=== PATIENT | male | born 1935 | race Caucasian/White ===

== ENCOUNTER 2016-07-19 12:05 | Emergency (ER) | payer MEDICARE, OTHER ==
[~2016-07-19] VITALS: Ht 165.1 cm; Wt 88.0 kg
[~2016-07-19 12:05] MED LIST: AMLO-145 PO; AMLO-147 PO; ATEN50TA PO; PARO-37 PO; [UNRECOGNIZED DRUG - CODE]; [UNRECOGNIZED DRUG - OTHER]
[2016-07-19 12:09] VITALS: Ht 165.1 cm; Wt 88.0 kg
[2016-07-19] MEDS ORDERED: SOD CHLORIDE 0.9% 1,000 ML IV STA (12:26)
[2016-07-19] MEDS ORDERED: LABETALOL HCL 20MG INJ IV ONE (12:30)
[2016-07-19] MEDS ORDERED: ONDANSETRON 4 MG INJ IV STA (12:34)
[2016-07-19 12:56] VITALS: BP 151/87; PULSE 91; RESP 16
[2016-07-19] MEDS ORDERED: morphine 2 MG INJ IV ONE (13:00)
[2016-07-19 13:02] LABS: ADD SCAN DIFF NO
[2016-07-19 13:04] LABS: BASOPHILS % 0.6 % (0.0-2.0); EOSINOPHILS # 0.2 10^3/ul (0.0-0.5); EOSINOPHILS % 2.4 % (0.0-7.0); HEMATOCRIT 42.1 % (42.0-52.0); HEMOGLOBIN 14.2 g/dl (14.0-18.0); LYMPHOCYTES # 2.3 10^3/ul (0.8-2.9); LYMPHOCYTES % 37.5 % (15.0-51.0); MEAN CORPUSCULAR HEMOGLOBIN 30.9 pg (29.0-33.0); MEAN CORPUSCULAR HGB CONC 33.7 g/dl (32.0-37.0); MEAN CORPUSCULAR VOLUME 91.5 fl (82.0-101.0); MEAN PLATELET VOLUME 10.8 fl (7.4-10.4); MONOCYTE # 0.5 10^3/ul (0.3-0.9); MONOCYTES % 8.2 % (0.0-11.0); NEUTROPHIL # 3.2 10^3/ul (1.6-7.5); NEUTROPHILS % 51.1 % (39.0-77.0); PLATELET COUNT 199 10^3/UL (140-415); RED CELL DISTRIBUTION WIDTH 13.4 % (11.5-14.5); WHITE BLOOD COUNT 6.2 10^3/ul (4.8-10.8)
[2016-07-19] MEDS ORDERED: NAPR-688 PO ×2 (13:11→15:30)
[2016-07-19] MEDS ORDERED: NASO17 NASAL (13:11)
[2016-07-19] MEDS ORDERED: TAMS-14 PO (13:12)
[2016-07-19] MEDS ORDERED: ESOM20CA PO (13:12)
[2016-07-19] MEDS ORDERED: SPIR100T31 PO (13:12)
[2016-07-19] MEDS ORDERED: ICOS1CAP PO (13:14)
[2016-07-19] MEDS ORDERED: ATOR40TA68 PO (13:17)
[2016-07-19] MEDS ORDERED: PARO40TA79 PO (13:17)
[2016-07-19] MEDS ORDERED: RANI300T PO (13:17)
[2016-07-19] MEDS ORDERED: LORA0.5T PO (13:18)
[2016-07-19] MEDS ORDERED: FURO-109 PO (13:18)
[2016-07-19] MEDS ORDERED: LEVO25TA50 PO (13:18)
[2016-07-19] MEDS ORDERED: LISI20TA11 PO (13:19)
[2016-07-19] MEDS ORDERED: BIMA2.5D BOTH EYES (13:19)
[2016-07-19] MEDS ORDERED: NIT4 SL (13:19)
[2016-07-19] MEDS ORDERED: LINA145C PO (13:20)
--- NOTE | 2016-07-19 13:20 | RADRPT ---
PROCEDURE: XR Chest. CLINICAL INDICATION: Chest pain TECHNIQUE: Single frontal chest x-ray. COMPARISON: 12/11/2014 FINDINGS: The heart size is enlarged. Subtle mild increased vascular congestion is seen within the lungs, chr onic in nature and stable over time. No pneumonia is identified. There is no acute pulmonary infil trate. There is mild elevation of the left hemidiaphragm. The heart size is enlarged. Aortic ather osclerotic vascular calcifications are identified. Chronic degenerative changes of the surrounding osseous structures is noted. IMPRESSION: 1. Cardiomegaly with mild central vascular congestion. 2. Elevated left hemidiaphragm. 3. Vascular calcifications consistent with atherosclerosis. 4. Degenerative spondylosis of the spine. 5. Stable appearances compared to the older prior study. RPTAT: HMJB .Evin Saavedra MD, Date Time Electronically viewed and signed by .Evin Saavedra MD, on 07/19/2016 13:20 .B/
[2016-07-19] MEDS ORDERED: CLON-379 PO (13:21)
[2016-07-19] MEDS ORDERED: MOME45OI9 TOP (13:22)
[2016-07-19] MEDS ORDERED: CALC60OI3 TOP (13:22)
[2016-07-19 13:23] LABS: INR 0.96; PARTIAL THROMBOPLASTIN TIME 26.4 Sec (25.0-35.0); PROTIME 12.8 Sec (12.2-14.2)
[2016-07-19 13:27] LABS: CHLORIDE 108 mmol/L (97-110); POTASSIUM 4.7 mmol/L (3.5-5.1); SODIUM 139 mmol/L (135-144)
[2016-07-19 13:28] LABS: ALBUMIN 4.1 g/dl (3.3-4.9)
[2016-07-19] MEDS ORDERED: BUPR150F BC (13:28)
[2016-07-19 13:30] LABS: CREATININE 1.27 mg/dl (0.61-1.24)
[2016-07-19 13:31] LABS: ANION GAP 10 (8-16); BLOOD UREA NITROGEN 21 mg/dl (7-20); CALCIUM 8.9 mg/dl (8.4-10.2); CARBON DIOXIDE 26 mmol/L (21-31); GLUCOSE 91 mg/dl (70-220)
[2016-07-19 13:31] LABS: BILIRUBIN,INDIRECT 0.4 mg/dl (0-1.1); BILIRUBIN,TOTAL 0.4 mg/dl (0.2-1.3); TOTAL PROTEIN 7.6 g/dl (6.1-8.1)
[2016-07-19 13:44] LABS: TROPONIN-I < 0.012 ng/ml (0.00-0.12)
[2016-07-19 13:57] LABS: ADD UMIC NO; URINE BILIRUBIN (Dip) NEGATIVE (NEGATIVE); URINE BLOOD (Dip) NEGATIVE (NEGATIVE); URINE COLOR YELLOW (YELLOW); URINE GLUCOSE (Dip) NEGATIVE (NEGATIVE); URINE KETONES (Dip) NEGATIVE (NEGATIVE); URINE LEUKOCYTE ESTERASE (Dip) NEGATIVE (NEGATIVE); URINE NITRITE (Dip) NEGATIVE (NEGATIVE); URINE TOTAL PROTEIN (Dip) NEGATIVE (NEGATIVE); URINE UROBILINOGEN (Dip) 0.2 E.U./dL (0.1-1.0)
--- NOTE | 2016-07-19 14:17 | RADRPT ---
PROCEDURE: CT Abdomen and Pelvis without contrast. CLINICAL INDICATION: Abdominal pain. TECHNIQUE: Routine abdominopelvic CT was performed without intravenous contrast and reformatted in the axial, coronal, sagittal planes. Radiation dose: CTDIvol (mGy) = 17.9; total DLP mGy-cm = 1147. One or more of the following radiation dose techniques were used: -Automated exposure control. -Adjust of the mA and/or kV according to patient size. -Use of iterative reconstruction technique. COMPARISON: None. FINDINGS: A single calculus is noted in the gallbladder without gallbladder wall thickening or inflammation. There are diffuse steatotic changes in the liver. Pancreas, adrenal glands, and spleen are grossly unremarkable by unenhanced CT. Nonspecific bilateral perinephric inflammation without hydronephrosis or obstructive uropathy. Mild sigmoid and descending colonic diverticulosis without diverticulitis. Small bowel loops are no rmal in caliber and mural thickness. The appendix is not definitely identified but no secondary sig ns of appendicitis. Moderate atherosclerotic aortic calcifications without aneurysm. Prostate gland is enlarged (5.6 cm in AP dimension). There is associated trabeculation of the urina ry bladder. Moderate to severe atherosclerotic aortic calcifications without aneurysm. Diastases of the rectus abdominis musculature with evidence of a prior midline incision IMPRESSION: Examination is limited by the absence of intravenous contrast, which may limit diagnostic sensitivit y. Within the limitations of the examination, no acute intra-abdominal process. Cholelithiasis and colonic diverticulosis, uncomplicated. Additional incidental findings are delineated above. RPTAT: EE .Александр Fontaine MD, Date Time Electronically viewed and signed by .Александр Fontaine MD, on 07/19/2016 14:21 .C/
[2016-07-19] MEDS ORDERED: morphine 4 MG/ML VIAL IV STA (14:24)
--- NOTE | 2016-07-19 15:17 | RADRPT ---
PROCEDURE: US Abdomen (Right upper quadrant) CLINICAL INDICATION: Abdominal pain. TECHNIQUE: Multiple real-time longitudinal and transverse images were acquired of the patient's ri ght upper quadrant utilizing a curved array transducer. COMPARISON: Same day CT. FINDINGS: Liver demonstrates nonspecific coarsening of the liver echotexture. No focal liver mass. Portal vein demonstrates hepatopetal flow. Gallbladder demonstrates a single gallstone. There is no gallbladder wall thickening or pericholecy stic fluid. No intra- or extrahepatic biliary dilation. Sonographic Lackey's sign is negative, as per technologist. Pancreas is poorly visualized. Right kidney demonstrates cortical thinning without hydronephrosis or nephrolithiasis. There are sm all renal cysts. No ascites. Proximal aorta and IVC are unremarkable. MEASUREMENTS: Liver: 17.5 cm Common Duct: 0.4 cm Right Kidney: 9.3 cm IMPRESSION: 1. Cholelithiasis without sonographic evidence of cholecystitis or biliary dilatation. 2. Hepatic steatosis. RPTAT: EE .Александр Fontaine MD, MD Date Time Electronically viewed and signed by .Александр Fontaine MD, MD on 07/19/2016 15:21 .C/
[2016-07-19] MEDS ORDERED: ONDA4TAB11 PO (15:30)
[2016-07-19] MEDS ORDERED: HYDR-906 PO (15:30)
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
== END 2016-07-19 16:26 | disposition home or self-care (01) ==
LOC: E/R 12:05
DX: K80.50 Calculus of bile duct without cholangitis or cholecystitis without obstruction (principal); R40.2142 Coma scale, eyes open, spontaneous, at arrival to emergency department; R40.2252 Coma scale, best verbal response, oriented, at arrival to emergency department; R40.2362 Coma scale, best motor response, obeys commands, at arrival to emergency department; I10 Essential (primary) hypertension; J45.909 Unspecified asthma, uncomplicated; R07.9 Chest pain, unspecified
CPT/HCPCS: 36415; 71010; 74176; 76705; 80048; 80076; 81003; 83690; 84484; 85025; 85610; 85730; 96374; 96375; 96376; 99285; J2270; J2405; J7030; 93005

== ENCOUNTER 2016-08-14 07:31 | Day surgery (SDC) | payer MEDICARE, OTHER ==
[2016-08-13 11:58] VITALS: BMI 32.0
[~2016-08-14] VITALS: Ht 167.6 cm; Wt 86.8 kg
[~2016-08-14 07:31] MED LIST changes: -AMLO-145 PO; -AMLO-147 PO; -ATEN50TA PO; +ATOR40TA68 PO; +BIMA2.5D BOTH EYES; +BUPR150F BC; +CALC60OI3 TOP; +CEFAZOLIN 2 GM/50 ML (PMX) 50 ML IVPB SCH; +CLON-379 PO; +ESOM20CA PO; +FURO-109 PO; +HYDR-906 PO; +ICOS1CAP PO; +LEVO25TA50 PO; +LINA145C PO; +LISI20TA11 PO; +LORA0.5T PO; +MOME45OI9 TOP; +NAPR-688 PO; +NASO17 NASAL; +NIT4 SL; +ONDA4TAB11 PO; -PARO-37 PO; +PARO40TA79 PO; +RANI300T PO; +SOD CHLORIDE 0.9% 1,000 ML IV SCH; +SPIR100T31 PO; +TAMS-14 PO; -[UNRECOGNIZED DRUG - CODE]; -[UNRECOGNIZED DRUG - OTHER]
[2016-08-14] MEDS ORDERED: BUPIVACAINE 0.25% (MPF) 30 ML INJ ONE (08:41)
[2016-08-14 08:55] VITALS: BP 144/66; PULSE 73; RESP 16; Ht 167.6 cm; Wt 86.8 kg
[2016-08-14] MEDS ORDERED: ICOS1CAP PO (09:09)
[2016-08-14] MEDS ORDERED: DICL112S2 TP (09:09)
[2016-08-14] MEDS ORDERED: ALIR75PE SQ (09:09)
[2016-08-14] MEDS ORDERED: [UNRECOGNIZED DRUG - REMARK] (09:11)
[2016-08-14] MEDS ORDERED: PENNSAID (09:12)
[2016-08-14] MEDS ORDERED: FENTAnyl 50 MCG/ML VIAL ONE (09:17)
[2016-08-14] MEDS ORDERED: ROCURONIUM 50 MG INJ ONE (09:17)
[2016-08-14] MEDS ORDERED: ROPIVACAINE 0.5 % 30 ML VIAL ONE (09:17)
[2016-08-14] MEDS ORDERED: PROPOFOL 0 ML ONE (09:17)
[2016-08-14] MEDS ORDERED: METOCLOPRAMIDE 10 MG INJ ONE (09:17)
[2016-08-14 09:29] LABS: ALBUMIN 4.6 g/dl (3.3-4.9); ALBUMIN/GLOBULIN RATIO 1.48; BILIRUBIN,INDIRECT 0.2 mg/dl (0-1.1); BILIRUBIN,TOTAL 0.2 mg/dl (0.2-1.3); TOTAL PROTEIN 7.7 g/dl (6.1-8.1)
[2016-08-14 09:32] LABS: CALCIUM 8.6 mg/dl (8.4-10.2); CREATININE 1.38 mg/dl (0.61-1.24); POTASSIUM 6.9 mmol/L (3.5-5.1)
[2016-08-14] MEDS ORDERED: ALBUTEROL 0.5% (NEB) 2.5 MG/0.5 ML AMP INH STA (11:27)
[2016-08-14] MEDS ORDERED: NA BICARBONATE 8.4% 50 ML SYG IV STA (11:27)
[2016-08-14] MEDS ORDERED: INSULIN REGULAR, HUMAN 100 UNIT/1 ML 3ML VIAL IV STA (11:27)
[2016-08-14] MEDS ORDERED: DEXTROSE 50% 50 ML SYRINGE IV PRN (11:30)
[2016-08-14] MEDS ORDERED: NAPR550T3 PO (12:03)
== END 2016-08-14 11:17 | disposition home or self-care (01) ==
LOC: SDS 07:31
PROVIDERS: ATTEND Surgery
DX: K80.20 Calculus of gallbladder without cholecystitis without obstruction (principal); Z53.9 Procedure and treatment not carried out, unspecified reason; I10 Essential (primary) hypertension; F32.9 Major depressive disorder, single episode, unspecified; N40.0 Benign prostatic hyperplasia without lower urinary tract symptoms
CPT/HCPCS: 80053; 84132; J2765; J2795; J3010

== ENCOUNTER 2016-08-14 11:16 | Inpatient (IN) | payer MEDICARE, OTHER ==
[~2016-08-14] VITALS: Ht 167.6 cm; Wt 95.0 kg
[~2016-08-14 11:16] MED LIST changes: +ALIR75PE SQ; -CEFAZOLIN 2 GM/50 ML (PMX) 50 ML IVPB SCH; +DICL112S2 TP; +PENNSAID; -SOD CHLORIDE 0.9% 1,000 ML IV SCH; +[UNRECOGNIZED DRUG - REMARK]
[2016-08-14] MEDS ORDERED: NAPR550T3 PO (12:03)
[2016-08-14] MEDS ORDERED: ONDANSETRON 4 MG INJ IV STA (12:12)
[2016-08-14] MEDS ORDERED: morphine 4 MG/ML VIAL IV STA (12:12)
[2016-08-14] MEDS ORDERED: ACETAMINOPHEN 325 MG TAB PO PRN (12:30)
[2016-08-14] MEDS ORDERED: ONDANSETRON 4 MG INJ IV PRN ×2 (12:30→13:00)
[2016-08-14 12:43] LABS: ADD SCAN DIFF NO
[2016-08-14] MEDS ORDERED: INSULIN REGULAR, HUMAN 100 UNIT/1 ML 3ML VIAL IV STA (12:47)
[2016-08-14] MEDS ORDERED: ALBUTEROL 0.5% (NEB) 2.5 MG/0.5 ML AMP INH STA (12:47)
[2016-08-14] MEDS ORDERED: NA BICARBONATE 8.4% 50 ML SYG IV STA (12:47)
[2016-08-14 12:52] LABS: BASOPHIL # 0.1 10^3/ul (0.0-0.1); BASOPHILS % 0.9 % (0.0-2.0); EOSINOPHILS # 0.2 10^3/ul (0.0-0.5); EOSINOPHILS % 2.6 % (0.0-7.0); HEMATOCRIT 42.7 % (42.0-52.0); HEMOGLOBIN 14.2 g/dl (14.0-18.0); LYMPHOCYTES % 27.2 % (15.0-51.0); MEAN CORPUSCULAR HEMOGLOBIN 31.2 pg (29.0-33.0); MEAN CORPUSCULAR HGB CONC 33.3 g/dl (32.0-37.0); MEAN CORPUSCULAR VOLUME 93.8 fl (82.0-101.0); MEAN PLATELET VOLUME 10.9 fl (7.4-10.4); MONOCYTE # 0.5 10^3/ul (0.3-0.9); MONOCYTES % 7.3 % (0.0-11.0); NEUTROPHIL # 4.6 10^3/ul (1.6-7.5); NEUTROPHILS % 61.7 % (39.0-77.0); PLATELET COUNT 205 10^3/UL (140-415); RED BLOOD COUNT 4.55 10^6/ul (4.70-6.10); RED CELL DISTRIBUTION WIDTH 13.2 % (11.5-14.5); WHITE BLOOD COUNT 7.4 10^3/ul (4.8-10.8)
[2016-08-14] MEDS ORDERED: morphine 4 MG/ML VIAL IV PRN (13:00)
[2016-08-14] MEDS ORDERED: NITROGLYCERIN (SL) 0.4 MG TAB SL PRN (13:00)
[2016-08-14] MEDS ORDERED: NA POLYST SULFON 15 GM/60 ML BTL PO ONE (13:00)
[2016-08-14] MEDS ORDERED: NACL 0.9% 3 ML SYG IV SCH (13:00)
[2016-08-14] MEDS ORDERED: hydrALAzine 20 MG INJ IV PRN (13:00)
[2016-08-14] MEDS ORDERED: DEXTROSE 50% 50 ML SYRINGE IV PRN (13:00)
[2016-08-14 13:10] LABS: ANION GAP 13 (8-16); BLOOD UREA NITROGEN 21 mg/dl (7-20); CALCIUM 8.5 mg/dl (8.4-10.2); CARBON DIOXIDE 21 mmol/L (21-31); CHLORIDE 110 mmol/L (97-110); CREATININE 1.29 mg/dl (0.61-1.24); GLUCOSE 70 mg/dl (70-220); SODIUM 137 mmol/L (135-144)
--- NOTE | 2016-08-14 13:12 | RADRPT ---
PROCEDURE: XR Chest 1 View. CLINICAL INDICATION: Chest pain TECHNIQUE: AP view of the chest was obtained. COMPARISON: July 19, 2016 FINDINGS: The cardiomediastinal silhouette is within normal limits. Blunting of the bilateral costophrenic ang les is identified. Atelectasis is noted in the bilateral lower lobes. No consolidations are identif ied. No pneumothorax is seen. The osseous structures are osteopenic, but appear grossly intact. D egenerative changes are seen in the shoulders. IMPRESSION: Lung of the bilateral costophrenic angles that may reflect small pleural effusions. Atelectasis at the lung bases. RPTAT: AA .Denzel Hurley MD, Date Time Electronically viewed and signed by .Denzel Hurley MD, on 08/14/2016 13:12 .P/
[2016-08-14 13:14] LABS: POTASSIUM 7.1 mmol/L (3.5-5.1)
[2016-08-14 13:38] LABS: TROPONIN-I < 0.012 ng/ml (0.00-0.12)
--- NOTE | 2016-08-14 13:52 | RADRPT ---
PROCEDURE: Renal Ultrasound CLINICAL INDICATION: Elevated creatinine. TECHNIQUE: Evaluation of the kidneys and bladder was performed as well with helton scale and color and Doppler evaluation using a curved array transducer. The images were reviewed on a high-resoluti on PACS workstation. COMPARISON: Right upper quadrant ultrasound 07/19/2016. CT abdomen pelvis 07/19/2016 FINDINGS: The kidneys are well visualized. No renal masses or calcifications are seen. There is no hydronephr osis. The right kidney measures 9.8 cm in length. The left kidney measures 9.1 cm in length. N o perinephric fluid collection is seen. The bladder is within normal limit. IMPRESSION: 1. Unremarkable renal ultrasound. RPTAT: KK .Tiburcio Nolasco MD, MD Date Time Electronically viewed and signed by .Tiburcio Nolasco MD, MD on 08/14/2016 13:52 .B/
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
[2016-08-14] MEDS: ALBUTEROL 18 GM INHALER INH SCH ×3 (14:09→21:00)
[2016-08-14] MEDS: SOD CHLORIDE 0.9% 1,000 ML IV SCH ×2 (14:10→22:43)
[2016-08-14 17:29] VITALS: TEMP 97.8
[2016-08-14 18:33] VITALS: BP 155/70; PULSE 65; RESP 18
[2016-08-14 18:53] VITALS: PULSE 71
[2016-08-14 20:00] VITALS: Ht 167.6 cm; Wt 95.0 kg
[2016-08-14 20:32] VITALS: PULSE 80
[2016-08-14 20:34] VITALS: BP 165/72; RESP 16
[2016-08-14 20:53] LABS: CALCIUM 8.6 mg/dl (8.4-10.2); CREATININE 1.27 mg/dl (0.61-1.24); POTASSIUM 5.3 mmol/L (3.5-5.1)
[2016-08-14] MEDS: HEPARIN 5,000 UNIT/0.5 ML VIAL SC SCH (21:34)
--- NOTE | 2016-08-14 22:09 | CONS ---
DATE OF ADMISSION: 08/14/2016 DATE OF CONSULTATION: 08/14/2016 NEPHROLOGY CONSULTATION REASON FOR CONSULTATION: Hyperkalemia, acute kidney injury. PHYSICIAN REQUESTING CONSULT: Dr. Cole. HISTORY OF PRESENT ILLNESS: This is an 81-year-old male with a past medical history of hypertension , history of abdominal pain, anxiety disorder, hypothyroidism, constipation, who presents to [facility] Emergency Room from same day surgery due to hyperkalemia. The patient has a h istory of gallstones and fatty liver, and was undergoing a planned elective cholecystectomy and live r biopsy. The patient's surgery was canceled after laboratory data was drawn, which showed a potass ium level of 7.5 and creatinine 1.27 mg/dL. The patient was subsequently transferred to the Emergen cy Room. In the Emergency Room, the patient's hyperkalemia was verified with a repeat potassium of 7.1 mEq/liter. The patient was medically managed with Kayexalate, IV fluids, insulin, dextrose, alb uterol, and calcium gluconate. The patient had no significant EKG changes and has been otherwise st able. In terms of patient's renal history, per patient's family, the patient has no prior history of kidne y disease. The patient's previous renal panel shows creatinines ranging from 0.85-1.7 mg/dL. The p atient does admit to taking Aldactone, lisinopril, NSAIDs. He denies any recent fevers, chills, den ies any rashes, any frothy urine, hemoptysis, hemetemesis, hematochezia. PAST MEDICAL HISTORY: As stated above, history of hypertension, history of possible CKD, history of hypothyroidism, history of abdominal pain, history of chronic pain syndrome, history of constipatio n. PAST SURGICAL HISTORY: Previous stomach surgery in the past. ALLERGIES: NO KNOWN DRUG ALLERGIES. FAMILY HISTORY: No family history of kidney disease or heart disease. SOCIAL HISTORY: Does not drink, smoke, or do drugs. MEDICATIONS: The patient's medications have been reviewed. REVIEW OF SYSTEMS: A 14-point review of systems was conducted. Pertinent positives stated in HPI, otherwise negative. PHYSICAL EXAMINATION: VITAL SIGNS: Blood pressure is 155/70, respirations 18, pulse 65, temperature 97.7. I's and O's not adequately recorded. HEENT: Head is normocephalic. Pupils are reactive to light. NECK: Supple. HEART: Regular rate. LUNGS: Show diminished breath sounds at the base. ABDOMEN: Soft, mild tenderness to palpation. EXTREMITIES: Negative for clubbing, cyanosis, no edema. DERMATOLOGIC: No rashes. MUSCULOSKELETAL: No joint effusions. NEUROLOGIC: No focal deficits. LABORATORY DATA: Shows white count of 7.4, hemoglobin 14.2, hematocrit 42.7, platelet count is 205. Sodium 137, potassium 7.1, chloride 110, BUN 21, creatinine 1.29. IMAGING STUDIES: Patient's renal ultrasound shows unremarkable kidney ultrasound, no hydronephrosis , and chest x-ray shows small pleural effusions. ASSESSMENT AND PLAN: This is an 80-year-old male who presents with: 1. Hyperkalemia: Etiology is likely multifactorial secondary to NSAID use, SABA inhibitor, Aldacton e effect, possible by acute kidney injury. The patient is status post calcium gluconate, Kayexalate , IV fluids, Albuterol, IV insulin. The patient's urinary output has been adequate. Plan at this p oint is to repeat a stat BMP to see if the patient's potassium levels have normalized. Would contin ue holding SABA inhibitor, ARB, NSAID, Aldactone. If potassium levels do not normalize with medical management, the patient will undergo hemodialysis. We will monitor closely on telemetry. 2. Nonoliguric acute kidney injury on top of possible chronic kidney disease: The patient's previo us baseline creatinines have ranged from 0.85-1.25 mg/dL. Etiology of acute kidney injury is second reinaldo to medications including SABA inhibitor, diuretic therapy, NSAID. Plan is for full evaluation. We will check a UA with microanalysis. We will check urine electrolytes. The patient's renal ultra sound shows no evidence of hydronephrosis. We will otherwise continue gentle IV hydration. We will follow up renal panel closely. Otherwise, continue supportive care, renally dose meds, avoid nephr otoxins. As stated above, if the patient's hyperkalemia does not respond to medical management, wou ld consider renal replacement therapy. 3. Hypertension: Blood pressure is currently controlled, continue to monitor. If blood pressure m edications need to be resumed, would recommend calcium-channel blockers and/or beta-blockers. 4. Chronic abdominal pain: The patient is pending cholecystectomy and liver biopsy. We will monit or. 5. Fatty liver: We will continue to monitor. The patient is pending possible liver biopsy once cl inically stable. 6. Obesity: Continue dietary modification. 7. . 2. Gastrointestinal and deep venous thrombosis prophylaxis. Thank you, Dr. Cole, for this interesting consultation. It will be a pleasure to follow patient wit h lizzie throughout the hospital course. Dictated By: JACQUI MORSE/MAYELIN Conf#: [id number] DID#: [id number]
[2016-08-14 23:21] LABS: ADD UMIC NO; UR ASCORBIC ACID NEGATIVE (NEGATIVE); UR BILIRUBIN (Dip) NEGATIVE (NEGATIVE); UR BLOOD (Dip) NEGATIVE (NEGATIVE); UR CLARITY CLEAR (CLEAR); UR COLOR STRAW (YELLOW); UR GLUCOSE (Dip) NEGATIVE (NEGATIVE); UR KETONES (Dip) NEGATIVE (NEGATIVE); UR LEUKOCYTE ESTERASE (Dip) NEGATIVE Leu/ul (NEGATIVE); UR NITRITE (Dip) NEGATIVE (NEGATIVE); UR TOTAL PROTEIN (Dip) NEGATIVE (NEGATIVE); UR UROBILINOGEN (Dip) NEGATIVE (NEGATIVE)
--- NOTE | 2016-08-14 23:53 | HP ---
Date/Time of Note Date/Time of Note DATE: 08/14/16 TIME: 23:53 Assessment/Plan VTE Prophylaxis VTE Prophylaxis Intervention: SCD's Lines/Catheters IV Catheter Type (from Nrs): Peripheral IV Urinary Cath still in place: No Assessment/Plan Assessment/Plan IMPRESSION 1. Hyperkalemia 2. Presumed BINTA 3. HTN 4. hx of Hypothyroidism 5. Hx of Anxiety 6. Hx of GERD 7. Cholelithiasis PLAN pt is s/p treatment for hyperK. Will f/u lab closely. Dr. Oliver on board, appreciate his input cont his home meds since surgery is cancelled Mgmt of cholelithiasis per surgery HPI/ROS Admit Date/Time Admit Date/Time Aug 14, 2016 at 12:26 Hx of Present Illness Patient is an 81 yo male with hx of HTN, hypothyroidism, anxiety, GERD who was sent from same day surgery to ER for hyperkalemia. Elective lap choley was cancelled. He is accopmpanied with daughter who also provided hx. Pt reported intermittent palpitations over past few days. Denied chest pain or syncope. Also denied hx of renal disease. In ER, K was 7.1. he was given insulin and albuterol. kayexalate is now ordered. . PMH/Family/Social Past Medical History HTN, hypothyroidism, anxiety, GERD Social History Smoking Status: Never smoker Exam/Review of Systems Vital Signs Vitals Vital Signs Date Time Temp Pulse Resp B/P Pulse Ox O2 Delivery O2 Flow Rate FiO2 08/14/16 20:34 98.1 69 16 165/72 97 08/14/16 18:33 Room Air 08/14/16 13:22 21 Exam Constitutional: alert, oriented, other (obese) Head: atraumatic, normocephalic Eyes: EOMI, PERRL Respiratory: clear to auscultation, normal air movement Cardiovascular: nl pulses, regular rate and rhythm Gastrointestinal: soft, tender Extremities: normal pulses Labs Result Diagram: 08/14/16 1205 08/14/16 1957 Medications Medications Current Medications Dextrose ONCE PRN IV POC BLOOD GLUCOSE <250 MG/DL Last administered on t 13:17; Admin Dose 50 ML; Start 08/14/16 at 13:00 Sodium Chloride (NS) 1,000 ml @ 100 mls/hr Q10H IV Last administered on 22:43; Admin Dose 100 MLS/HR; Start 08/14/16 at 12:43 Ondansetron HCl (Zofran Inj) 4 mg Q6H PRN IV NAUSEA AND/OR VOMITING; Start at 13:00 Nitroglycerin (Nitroglycerin (Sl Tab) 0.4 Mg) 1 tab Q5M PRN SL CHEST PAIN; Start 08/14/16 at 13:00 Morphine Sulfate (morphine) 4 mg Q4H PRN IV pain; Start 08/14/16 at 13:00 Heparin Sodium (Porcine) (Heparin (5000 Units/0.5 ml)) 5,000 unit Q12 SC Last administered on 08/14/16 21:34; Admin Dose 5,000 UNIT; Start 08/14/16 at 21:00 Hydralazine HCl (Apresoline) 10 mg Q4H PRN IV sbp > 160 Last administered on 21:33; Admin Dose 10 MG; Start 08/14/16 at 13:00 JAROD NATH MD Aug 14, 2016 23:53
[2016-08-14 23:59] VITALS: BP 144/67; RESP 18
[2016-08-15] VITALS (12 sets, daily range): BP systolic 101–148; BP diastolic 59–71; PULSE 65–82; RESP 16–19
[2016-08-15 07:56] LABS: ADD SCAN DIFF NO
[2016-08-15 08:05] LABS: BASOPHIL # 0.1 10^3/ul (0.0-0.1); BASOPHILS % 0.9 % (0.0-2.0); EOSINOPHILS # 0.2 10^3/ul (0.0-0.5); EOSINOPHILS % 2.8 % (0.0-7.0); HEMOGLOBIN 13.2 g/dl (14.0-18.0); LYMPHOCYTES # 1.9 10^3/ul (0.8-2.9); LYMPHOCYTES % 36.3 % (15.0-51.0); MEAN CORPUSCULAR HEMOGLOBIN 30.8 pg (29.0-33.0); MEAN CORPUSCULAR HGB CONC 32.2 g/dl (32.0-37.0); MEAN CORPUSCULAR VOLUME 95.8 fl (82.0-101.0); MEAN PLATELET VOLUME 10.9 fl (7.4-10.4); MONOCYTE # 0.5 10^3/ul (0.3-0.9); MONOCYTES % 8.6 % (0.0-11.0); NEUTROPHIL # 2.7 10^3/ul (1.6-7.5); NEUTROPHILS % 51.2 % (39.0-77.0); PLATELET COUNT 157 10^3/UL (140-415); RED BLOOD COUNT 4.28 10^6/ul (4.70-6.10); RED CELL DISTRIBUTION WIDTH 13.5 % (11.5-14.5); WHITE BLOOD COUNT 5.4 10^3/ul (4.8-10.8)
[2016-08-15 08:20] LABS: CALCIUM 7.6 mg/dl (8.4-10.2); CREATININE 1.16 mg/dl (0.61-1.24); POTASSIUM 5.9 mmol/L (3.5-5.1)
[2016-08-15] MEDS ORDERED: LORAZEPAM 0.5 MG TAB PO PRN (08:30)
[2016-08-15] MEDS: SOD CHLORIDE 0.9% 1,000 ML IV SCH (08:43)
[2016-08-15] MEDS: TAMSULOSIN (SR) 0.4 MG CAP PO SCH (09:14)
[2016-08-15] MEDS: HEPARIN 5,000 UNIT/0.5 ML VIAL SC SCH ×2 (09:26→21:49)
[2016-08-15] MEDS: [UNRECOGNIZED DRUG - REMARK] XX SCH ×2 (10:00→16:38)
[2016-08-15] MEDS: CALCIPOTRIENE 0.005% TOP SCH ×2 (10:00→21:37)
[2016-08-15] MEDS: MOMETASONE TOP SCH (10:00)
[2016-08-15] MEDS: PAROXETINE 20 MG TAB PO SCH (10:06)
[2016-08-15] MEDS: FLUTICASONE 0.05% 16 GM NAS SPRAY NASAL SCH (10:06)
[2016-08-15] MEDS ORDERED: NA POLYST SULFON 15 GM/60 ML BTL PO ONE (12:30)
[2016-08-15] MEDS ORDERED: FUROSEMIDE 40 MG INJ IV ONE (12:30)
--- NOTE | 2016-08-15 13:29 | PN ---
Date/Time of Note Date/Time of Note DATE: 08/15/16 TIME: 13:27 Assessment/Plan VTE Prophylaxis VTE Prophylaxis Intervention: SCD's Lines/Catheters IV Catheter Type (from [facility]): Peripheral IV Urinary Cath still in place: No Assessment/Plan Assessment/Plan 1. Hyperkalemia 2. Presumed BINTA 3. HTN 4. hx of Hypothyroidism 5. Hx of Anxiety 6. Hx of GERD 7. Cholelithiasis PLAN pt is s/p treatment for hyperK. Nephrology following Mgmt of cholelithiasis per surgery Subjective 24 Hr Interval Summary Free Text/Dictation k 6.1, cr 1.1 Exam/Review of Systems Vital Signs Vitals Vital Signs Date Time Temp Pulse Resp B/P Pulse Ox O2 Delivery O2 Flow Rate FiO2 08/15/16 12:08 72 08/15/16 11:38 98.6 19 142/63 98 08/14/16 18:33 Room Air 08/14/16 13:22 21 Intake and Output 08/14/16 08/14/16 08/15/16 14:59 22:59 06:59 Intake Total 500 ml Output Total 450 ml Balance 50 ml Exam Constitutional: alert, oriented, other (obese) Head: atraumatic, normocephalic Eyes: EOMI, PERRL Respiratory: clear to auscultation, normal air movement Cardiovascular: nl pulses, regular rate and rhythm Gastrointestinal: soft, tender Extremities: normal pulses Results Result Diagram: 08/15/16 0712 08/15/16 1011 Results 24 hrs Laboratory Tests Test 08/14/16 13:56 08/14/16 19:57 08/14/16 23:00 08/15/16 07:12 Bedside Glucose 130 Sodium Level 143 139 Potassium Level 5.3 H 5.9 H Chloride Level 109 111 H Carbon Dioxide Level 22 22 Anion Gap 17 H 12 Blood Urea Nitrogen 19 17 Creatinine 1.27 H 1.16 Glucose Level 80 78 Calcium Level 8.6 7.6 L Urine Color STRAW Urine Clarity CLEAR Urine pH 7.0 Urine Specific Elizabeth 1.010 Urine Ketones NEGATIVE Urine Nitrite NEGATIVE Urine Bilirubin NEGATIVE Urine Urobilinogen NEGATIVE Urine Leukocyte Esterase NEGATIVE Urine Hemoglobin NEGATIVE Urine Random Creatinine 64.22 Urine Random Sodium 120 H Urine Glucose NEGATIVE Urine Total Protein 11.0 White Blood Count 5.4 # Red Blood Count 4.28 L Hemoglobin 13.2 L Hematocrit 41.0 L Mean Corpuscular Volume 95.8 Mean Corpuscular Hemoglobin 30.8 Mean Corpuscular Hemoglobin Concent 32.2 Red Cell Distribution Width 13.5 Platelet Count 157 # Mean Platelet Volume 10.9 H Neutrophils % 51.2 Lymphocytes % 36.3 Monocytes % 8.6 Eosinophils % 2.8 Basophils % 0.9 Nucleated Red Blood Cells % 0.0 Neutrophils # 2.7 Lymphocytes # 1.9 Monocytes # 0.5 Eosinophils # 0.2 Basophils # 0.1 Nucleated Red Blood Cells # 0.0 Test 08/15/16 10:11 Potassium Level 6.1 *H Medications Medications Current Medications Dextrose ONCE PRN IV POC BLOOD GLUCOSE <250 MG/DL Last administered on 13:17; Admin Dose 50 ML; Start 08/14/16 at 13:00 Sodium Chloride (NS) 1,000 ml @ 50 mls/hr Q20H IV Last administered on 22:43; Admin Dose 100 MLS/HR; Start 08/14/16 at 12:43 Ondansetron HCl (Zofran Inj) 4 mg Q6H PRN IV NAUSEA AND/OR VOMITING; Start at 13:00 Nitroglycerin (Nitroglycerin (Sl Tab) 0.4 Mg) 1 tab Q5M PRN SL CHEST PAIN; Start 08/14/16 at 13:00 Morphine Sulfate (morphine) 4 mg Q4H PRN IV pain; Start 08/14/16 at 13:00 Heparin Sodium (Porcine) (Heparin (5000 Units/0.5 ml)) 5,000 unit Q12 SC Last administered on 08/15/16 09:26; Admin Dose 5,000 UNIT; Start 08/14/16 at 21:00 Hydralazine HCl (Apresoline) 10 mg Q4H PRN IV sbp > 160 Last administered on 21:33; Admin Dose 10 MG; Start 08/14/16 at 13:00 Bimatoprost (Lumigan 0.01% Oph) 1 drop HS BOTH EYES ; Start 08/15/16 at 21:00 Calcipotriene (Dovonex 0.005% Oint) 1 applic BID TOP ; Start 08/15/16 at 10:00 Clonidine (Catapres) 0.1 mg Q8H PRN PO ELEVATED BLOOD PRESSURE; Start 08/15/16 at 08:30 Lorazepam (Ativan) 0.5 mg HS PRN PO SLEEP; Start 08/15/16 at 08:30 Mometasone Furoate (Elocon 0.1% Cream) 1 applic DAILY TOP ; Start 08/15/16 at 10 :00 Paroxetine HCl (Paxil) 40 mg DAILY PO Last administered on 08/15/16 10:06; Admin Dose 40 MG; Start 08/15/16 at 09:00 Ranitidine HCl (Zantac) 300 mg HS PO ; Start 08/15/16 at 21:00 Tamsulosin HCl (Flomax) 0.4 mg DAILY PO Last administered on 08/15/16 09:14; Admin Dose 0.4 MG; Start 08/15/16 at 09:00 Fluticasone Propionate (Flonase 0.05% Nasal) 2 spray DAILY NASAL Last administered on 08/15/16 10:06; Admin Dose 2 SPRAY; Start 08/15/16 at 10:00 Miscellaneous Information (*Order Clarification Bulletin) MEDICATION REQUIRES CLARIFICATION: Q8H XX ; Start 08/15/16 at 09:00 GAUTAM CHIN MD Aug 15, 2016 13:28
[2016-08-15 17:31] LABS: CALCIUM 8.1 mg/dl (8.4-10.2); CREATININE 1.23 mg/dl (0.61-1.24); POTASSIUM 5.8 mmol/L (3.5-5.1)
[2016-08-15] MEDS ORDERED: BIMATOPROST 0.01% 2.5 ML BTL BOTH EYES SCH (21:00)
[2016-08-15] MEDS: LATANOPROST 0.005% 2.5 ML OPH BOTH EYES SCH (21:35)
[2016-08-15] MEDS: RANITIDINE 150 MG TAB PO SCH (21:35)
[2016-08-16] VITALS (11 sets, daily range): BP systolic 116–169; BP diastolic 60–83; PULSE 68–87; RESP 18–20
[2016-08-16] MEDS: [UNRECOGNIZED DRUG - REMARK] XX SCH ×3 (01:00→16:21)
[2016-08-16] MEDS: SOD CHLORIDE 0.9% 1,000 ML IV SCH (03:34)
[2016-08-16] MEDS: LEVOTHYROXINE 25 MCG TAB PO SCH (07:00)
[2016-08-16 07:31] LABS: ADD SCAN DIFF NO
[2016-08-16 07:55] LABS: BASOPHIL # 0.1 10^3/ul (0.0-0.1); BASOPHILS % 0.9 % (0.0-2.0); EOSINOPHILS # 0.2 10^3/ul (0.0-0.5); EOSINOPHILS % 2.2 % (0.0-7.0); HEMATOCRIT 44.5 % (42.0-52.0); HEMOGLOBIN 14.3 g/dl (14.0-18.0); LYMPHOCYTES % 28.9 % (15.0-51.0); MEAN CORPUSCULAR HEMOGLOBIN 30.4 pg (29.0-33.0); MEAN CORPUSCULAR HGB CONC 32.1 g/dl (32.0-37.0); MEAN CORPUSCULAR VOLUME 94.7 fl (82.0-101.0); MONOCYTE # 0.5 10^3/ul (0.3-0.9); MONOCYTES % 7.5 % (0.0-11.0); NEUTROPHIL # 4.1 10^3/ul (1.6-7.5); NEUTROPHILS % 60.4 % (39.0-77.0); PLATELET COUNT 174 10^3/UL (140-415); RED CELL DISTRIBUTION WIDTH 13.4 % (11.5-14.5); WHITE BLOOD COUNT 6.8 10^3/ul (4.8-10.8)
[2016-08-16 08:11] LABS: CALCIUM 8.4 mg/dl (8.4-10.2); CREATININE 1.08 mg/dl (0.61-1.24); MAGNESIUM 1.7 mg/dl (1.7-2.5); POTASSIUM 5.4 mmol/L (3.5-5.1)
[2016-08-16] MEDS: HEPARIN 5,000 UNIT/0.5 ML VIAL SC SCH ×2 (08:41→22:14)
[2016-08-16] MEDS: CALCIPOTRIENE 0.005% TOP SCH ×2 (08:42→22:12)
[2016-08-16] MEDS: MOMETASONE TOP SCH (08:42)
[2016-08-16] MEDS: PAROXETINE 20 MG TAB PO SCH (08:42)
[2016-08-16] MEDS: FLUTICASONE 0.05% 16 GM NAS SPRAY NASAL SCH (08:42)
[2016-08-16] MEDS: TAMSULOSIN (SR) 0.4 MG CAP PO SCH (08:42)
--- NOTE | 2016-08-16 14:47 | PN ---
DATE: 08/16/2016 SUBJECTIVE: The patient is stable, had multiple bowel movements yesterday. No other complaints not ed. No hemoptysis, hematemesis, or hematochezia. OBJECTIVE: VITAL SIGNS: Blood pressure 155/83, respirations 20, pulse 64, temperature 98.0. HEENT: Head is normocephalic. Pupils are reactive to light. NECK: Supple. HEART: Regular rate. LUNGS: Show diminished breath sounds at the base. ABDOMEN: Soft, nontender to palpation. No rebound or guarding. EXTREMITIES: Negative for clubbing, cyanosis. No edema. DERMATOLOGIC: No rashes. MUSCULOSKELETAL: No joint effusions. NEUROLOGIC: No change in exam. MEDICATIONS: The patient's medications have been reviewed. LABORATORY DATA: Shows sodium 139, potassium 5.4, chloride 109, BUN 15, creatinine 1.08. White cou nt 6.8, hemoglobin 14, hematocrit 34.5, platelet count 174. ASSESSMENT AND PLAN: 1. Hyperkalemia. Etiology is multifactorial secondary to Aldactone, ____, SABA inhibitor, and NSAID use. The patient's potassium level has slowly been improving. The patient is status post Kayexala te and diuretic therapy yesterday. At this point, we will continue to monitor. We will discontinue IV fluids. Continue low-potassium diet. 2. Nonoliguric acute kidney injury on top of possible chronic kidney disease. Etiology of BINTA is s econdary to hemodynamics. Renal function is improving. Continue to monitor. 3. Hypertension. Continue current blood pressure regimen. 4. Chronic abdominal pain. The patient is pending outpatient cholecystectomy and liver biopsy. 5. Fatty liver. Continue to monitor. 6. Obesity. Continue dietary modification. 7. GI and DVT prophylaxis. Dictated By: JACQUI TODD DO NR/NTS Conf#: [id number] DID#: [id number]
--- NOTE | 2016-08-16 20:00 | PN ---
Date/Time of Note Date/Time of Note DATE: 08/16/16 TIME: 19:59 Assessment/Plan VTE Prophylaxis VTE Prophylaxis Intervention: SCD's Lines/Catheters IV Catheter Type (from Nrs): Peripheral IV Urinary Cath still in place: No Assessment/Plan Assessment/Plan IMPRESSION 1. Hyperkalemia 2. Presumed BINTA 3. HTN 4. hx of Hypothyroidism 5. Hx of Anxiety 6. Hx of GERD 7. Cholelithiasis PLAN pt is s/p treatment for hyperK. Will f/u lab closely. Dr. Oliver on board, appreciate his input cont his home meds since surgery is cancelled Mgmt of cholelithiasis per surgery Subjective 24 Hr Interval Summary Free Text/Dictation no acute events overnight Exam/Review of Systems Vital Signs Vitals Vital Signs Date Time Temp Pulse Resp B/P Pulse Ox O2 Delivery O2 Flow Rate FiO2 08/16/16 16:08 87 08/16/16 15:58 98.3 18 123/69 96 08/14/16 18:33 Room Air 08/14/16 13:22 21 Intake and Output 08/15/16 08/15/16 08/16/16 15:00 23:00 07:00 Intake Total 1250 ml 550 ml Output Total 600 ml 750 ml Balance 650 ml -200 ml Exam Constitutional: alert, oriented, other (obese) Head: atraumatic, normocephalic Eyes: EOMI, PERRL Respiratory: clear to auscultation, normal air movement Cardiovascular: nl pulses, regular rate and rhythm Gastrointestinal: soft, tender Extremities: normal pulses Results Result Diagram: 08/16/16 0620 08/16/16 0610 Results 24 hrs Laboratory Tests Test 08/16/16 06:10 08/16/16 06:20 Sodium Level 139 Potassium Level 5.4 H Chloride Level 109 Carbon Dioxide Level 20 L Anion Gap 15 Blood Urea Nitrogen 15 Creatinine 1.08 Glucose Level 88 Calcium Level 8.4 Phosphorus Level 3.0 Magnesium Level 1.7 White Blood Count 6.8 # Red Blood Count 4.70 Hemoglobin 14.3 Hematocrit 44.5 Mean Corpuscular Volume 94.7 Mean Corpuscular Hemoglobin 30.4 Mean Corpuscular Hemoglobin Concent 32.1 Red Cell Distribution Width 13.4 Platelet Count 174 Mean Platelet Volume 11.0 H Neutrophils % 60.4 Lymphocytes % 28.9 Monocytes % 7.5 Eosinophils % 2.2 Basophils % 0.9 Nucleated Red Blood Cells % 0.0 Neutrophils # 4.1 Lymphocytes # 2.0 Monocytes # 0.5 Eosinophils # 0.2 Basophils # 0.1 Nucleated Red Blood Cells # 0.0 Medications Medications Current Medications Dextrose (D50w Syringe) ONCE PRN IV POC BLOOD GLUCOSE <250 MG/DL Last administered on 08/14/16 13:17; Admin Dose 50 ML; Start 08/14/16 at 13:00 Ondansetron HCl (Zofran Inj) 4 mg Q6H PRN IV NAUSEA AND/OR VOMITING; Start at 13:00 Nitroglycerin (Nitroglycerin (Sl Tab) 0.4 Mg) 1 tab Q5M PRN SL CHEST PAIN; Start 08/14/16 at 13:00 Morphine Sulfate (morphine) 4 mg Q4H PRN IV pain; Start 08/14/16 at 13:00 Heparin Sodium (Porcine) (Heparin (5000 Units/0.5 ml)) 5,000 unit Q12 SC Last administered on 08/16/16 08:41; Admin Dose 5,000 UNIT; Start 08/14/16 at 21:00 Hydralazine HCl (Apresoline) 10 mg Q4H PRN IV sbp > 160 Last administered on 21:33; Admin Dose 10 MG; Start 08/14/16 at 13:00 Calcipotriene (Dovonex 0.005% Oint) 1 applic BID TOP Last administered on 08:42; Admin Dose 1 APPLIC; Start 08/15/16 at 10:00 Clonidine (Catapres) 0.1 mg Q8H PRN PO ELEVATED BLOOD PRESSURE; Start 08/15/16 at 08:30 Lorazepam (Ativan) 0.5 mg HS PRN PO SLEEP; Start 08/15/16 at 08:30 Mometasone Furoate (Elocon 0.1% Cream) 1 applic DAILY TOP Last administered on 08/16/16 08:42; Admin Dose 1 APPLIC; Start 08/15/16 at 10:00 Paroxetine HCl (Paxil) 40 mg DAILY PO Last administered on 08/16/16 08:42; Admin Dose 40 MG; Start 08/15/16 at 09:00 Ranitidine HCl (Zantac) 300 mg HS PO Last administered on 08/15/16 21:35; Admin Dose 300 MG; Start 08/15/16 at 21:00 Tamsulosin HCl (Flomax) 0.4 mg DAILY PO Last administered on 08/16/16 08:42; Admin Dose 0.4 MG; Start 08/15/16 at 09:00 Fluticasone Propionate (Flonase 0.05% Nasal) 2 spray DAILY NASAL Last administered on 08/16/16 08:42; Admin Dose 2 SPRAY; Start 08/15/16 at 10:00 Latanoprost (Xalatan) 1 drop HS BOTH EYES Last administered on 08/15/16 21:35 ; Admin Dose 1 DROP; Start 08/15/16 at 21:00 JAROD NATH MD Aug 16, 2016 20:00
[2016-08-16] MEDS: RANITIDINE 150 MG TAB PO SCH (22:12)
[2016-08-16] MEDS: LATANOPROST 0.005% 2.5 ML OPH BOTH EYES SCH (22:12)
[2016-08-17] VITALS (10 sets, daily range): BP systolic 102–145; BP diastolic 57–83; PULSE 67–81; RESP 17–18
[2016-08-17 08:04] LABS: ADD SCAN DIFF NO
[2016-08-17 08:09] LABS: BASOPHIL # 0.1 10^3/ul (0.0-0.1); BASOPHILS % 0.9 % (0.0-2.0); EOSINOPHILS # 0.1 10^3/ul (0.0-0.5); EOSINOPHILS % 2.4 % (0.0-7.0); HEMATOCRIT 40.4 % (42.0-52.0); HEMOGLOBIN 13.1 g/dl (14.0-18.0); LYMPHOCYTES # 1.8 10^3/ul (0.8-2.9); LYMPHOCYTES % 32.6 % (15.0-51.0); MEAN CORPUSCULAR HEMOGLOBIN 30.2 pg (29.0-33.0); MEAN CORPUSCULAR HGB CONC 32.4 g/dl (32.0-37.0); MEAN CORPUSCULAR VOLUME 93.1 fl (82.0-101.0); MEAN PLATELET VOLUME 10.7 fl (7.4-10.4); MONOCYTE # 0.5 10^3/ul (0.3-0.9); MONOCYTES % 8.7 % (0.0-11.0); NEUTROPHILS % 55.2 % (39.0-77.0); PLATELET COUNT 169 10^3/UL (140-415); RED BLOOD COUNT 4.34 10^6/ul (4.70-6.10); RED CELL DISTRIBUTION WIDTH 13.2 % (11.5-14.5); WHITE BLOOD COUNT 5.4 10^3/ul (4.8-10.8)
--- NOTE | 2016-08-17 08:13 | PN ---
DATE: 08/15/2016 SUBJECTIVE: The patient this morning is complaining about general body pain, headache. The patient had no other acute events noted. No hemoptysis, hematemesis or hematochezia. OBJECTIVE: VITAL SIGNS: Blood pressure 143/70, respirations 18, pulse 68, temperature 98.8. HEENT: Head is normocephalic. NECK: Supple. HEART: Regular rate. LUNGS: Show diminished breath sounds at the bases. ABDOMEN: Soft, nontender to palpation. No guarding, no rebound. EXTREMITIES: Negative for clubbing, cyanosis. No edema. DERMATOLOGIC: No rashes. MUSCULOSKELETAL: No joint effusions. NEUROLOGIC: No change in exam. MEDICATIONS: The patient's medications have been reviewed. LABORATORY DATA: Shows white count 5.4, hemoglobin 13.2, hematocrit 41.0, platelet count is 147. S odium level is 139, potassium 5.9, chloride 111, BUN 17, creatinine 1.16. Urinalysis shows a FENa g reater than 1% , no significant proteinuria. ASSESSMENT AND PLAN: 1. Hyperkalemia. Etiology is felt to be multifactorial secondary to NSAID use, SABA inhibitor, Martha ctone effect and acute kidney injury. The patient's potassium levels have improved with discontinui ng hyperkalemic medications and with Kayexalate, IV fluids. The patient's potassium level this morn ing; however, increased to 5.9 mEq/L. Unclear if this is spurious result. The patient's renal func tion has normalized and the patient has adequate urinary output. Plan at this point is to repeat a potassium level stat. If the patient remains hyperkalemic, we will treat it with Kayexalate a nd diuretic therapy. We will continue to hold all potentially hyperkalemic medications. Monitor cl osely. DICTATION ENDS HERE Dictated By: JACQUI MORSE/MAYELIN Conf#: [id number] DID#: [id number]
[2016-08-17 08:36] LABS: CALCIUM 8.5 mg/dl (8.4-10.2); CREATININE 1.06 mg/dl (0.61-1.24); MAGNESIUM 1.7 mg/dl (1.7-2.5); PHOSPHORUS 3.2 mg/dl (2.5-4.9); POTASSIUM 4.8 mmol/L (3.5-5.1)
[2016-08-17] MEDS: LEVOTHYROXINE 25 MCG TAB PO SCH (09:12)
[2016-08-17] MEDS: FLUTICASONE 0.05% 16 GM NAS SPRAY NASAL SCH (09:12)
[2016-08-17] MEDS: CALCIPOTRIENE 0.005% TOP SCH (09:12)
[2016-08-17] MEDS: MOMETASONE TOP SCH (09:12)
[2016-08-17] MEDS: TAMSULOSIN (SR) 0.4 MG CAP PO SCH (09:13)
[2016-08-17] MEDS: PAROXETINE 20 MG TAB PO SCH (09:13)
[2016-08-17] MEDS: HEPARIN 5,000 UNIT/0.5 ML VIAL SC SCH (09:16)
--- NOTE | 2016-08-17 13:29 | PN ---
DATE: 08/17/2016 SUBJECTIVE: The patient is stable, no acute events overnight. No fevers, chills, nausea or vomitin g. No shortness of breath. OBJECTIVE: VITAL SIGNS: Blood pressure 126/59, respirations 18, pulse 79, temperature 98.1. HEENT: Head is normocephalic. NECK: Supple. HEART: Regular rate. LUNGS: Show diminished breath sounds at base. ABDOMEN: Soft, nontender to palpation, without rebound or guarding. EXTREMITIES: Negative for clubbing, cyanosis. No edema. DERMATOLOGIC: No rashes. MUSCULOSKELETAL: No joint effusions. NEUROLOGIC: No change in exam. MEDICATIONS: The patient's medications have been reviewed. LABORATORY DATA: Shows a BMP within normal limits. White count 5.4, hemoglobin 13.1, hematocrit 34 .1, platelet count 169. ASSESSMENT AND PLAN: 1. Hyperkalemia, etiology is multifactorial secondary to NSAID use, SABA inhibitor, and Aldactone ef fects. The patient's potassium levels have normalized after receiving Kayexalate, IV fluids, and di scontinuing medications. At this point, continue to monitor. Continue supportive care, renally dos e all medications, avoid nephrotoxins. 2. Nonoliguric acute kidney injury on top of possible chronic kidney disease. Etiology secondary t o hemodynamics. Renal function has normalized. Continue supportive care, renally dose all medicati ons, avoid nephrotoxins. 3. Hypertension. Continue current blood pressure regimen. 4. Chronic abdominal pain. The patient is pending possible outpatient cholecystostomy and liver bi opsy. 5. Fatty liver. Continue to monitor. 6. Obesity. Continue dietary modification. 7. Gastrointestinal/deep vein thrombosis prophylaxis. Dictated By: JACQUI MORSE/MAYELIN Conf#: [id number] DID#: [id number]
--- NOTE | 2016-08-17 14:54 | PN ---
Date/Time of Note Date/Time of Note DATE: 08/17/16 TIME: 14:53 Assessment/Plan VTE Prophylaxis VTE Prophylaxis Intervention: SCD's Lines/Catheters IV Catheter Type (from Nrs): Peripheral IV Assessment/Plan Assessment/Plan 1. Hyperkalemia, etiology is multifactorial secondary to NSAID use, SABA inhibitor, and Aldactone effects. The patient's potassium levels have normalized after receiving Kayexalate, IV fluids, and discontinuing medications. At this point, continue to monitor. Continue supportive care, renally dose all medications, avoid nephrotoxins. 2. Nonoliguric acute kidney injury on top of possible chronic kidney disease. Etiology secondary to hemodynamics. Renal function has normalized. Continue supportive care, renally dose all medications, avoid nephrotoxins. 3. Hypertension. Continue current blood pressure regimen. 4. Chronic abdominal pain. The patient is pending possible outpatient cholecystostomy and liver biopsy. 5. Fatty liver. Continue to monitor. 6. Obesity. Continue dietary modification. 7. Gastrointestinal/deep vein thrombosis prophylaxis. Subjective 24 Hr Interval Summary Free Text/Dictation k normal ,afebrile, BP stable Exam/Review of Systems Vital Signs Vitals Vital Signs Date Time Temp Pulse Resp B/P Pulse Ox O2 Delivery O2 Flow Rate FiO2 08/17/16 12:14 81 08/17/16 11:39 98.3 18 145/83 98 08/14/16 18:33 Room Air 08/14/16 13:22 21 Intake and Output 08/16/16 08/16/16 08/17/16 15:00 23:00 07:00 Intake Total 1500 ml 850 ml Output Total 1000 ml 900 ml Balance 500 ml -50 ml Results Result Diagram: 08/17/16 0710 08/17/16 0710 Results 24 hrs Laboratory Tests Test 08/17/16 07:10 White Blood Count 5.4 # Red Blood Count 4.34 L Hemoglobin 13.1 L Hematocrit 40.4 L Mean Corpuscular Volume 93.1 Mean Corpuscular Hemoglobin 30.2 Mean Corpuscular Hemoglobin Concent 32.4 Red Cell Distribution Width 13.2 Platelet Count 169 Mean Platelet Volume 10.7 H Neutrophils % 55.2 Lymphocytes % 32.6 Monocytes % 8.7 Eosinophils % 2.4 Basophils % 0.9 Nucleated Red Blood Cells % 0.0 Neutrophils # 3.0 Lymphocytes # 1.8 Monocytes # 0.5 Eosinophils # 0.1 Basophils # 0.1 Nucleated Red Blood Cells # 0.0 Sodium Level 137 Potassium Level 4.8 Chloride Level 108 Carbon Dioxide Level 22 Anion Gap 12 Blood Urea Nitrogen 15 Creatinine 1.06 Glucose Level 81 Calcium Level 8.5 Phosphorus Level 3.2 Magnesium Level 1.7 Medications Medications Current Medications Dextrose (D50w Syringe) ONCE PRN IV POC BLOOD GLUCOSE <250 MG/DL Last administered on 08/14/16 13:17; Admin Dose 50 ML; Start 08/14/16 at 13:00 Ondansetron HCl (Zofran Inj) 4 mg Q6H PRN IV NAUSEA AND/OR VOMITING; Start at 13:00 Nitroglycerin (Nitroglycerin (Sl Tab) 0.4 Mg) 1 tab Q5M PRN SL CHEST PAIN; Start 08/14/16 at 13:00 Morphine Sulfate (morphine) 4 mg Q4H PRN IV pain; Start 08/14/16 at 13:00 Heparin Sodium (Porcine) (Heparin (5000 Units/0.5 ml)) 5,000 unit Q12 SC Last administered on 08/17/16 09:16; Admin Dose 5,000 UNIT; Start 08/14/16 at 21:00 Hydralazine HCl (Apresoline) 10 mg Q4H PRN IV sbp > 160 Last administered on 21:33; Admin Dose 10 MG; Start 08/14/16 at 13:00 Calcipotriene (Dovonex 0.005% Oint) 1 applic BID TOP Last administered on 09:12; Admin Dose 1 APPLIC; Start 08/15/16 at 10:00 Clonidine (Catapres) 0.1 mg Q8H PRN PO ELEVATED BLOOD PRESSURE; Start 08/15/16 at 08:30 Lorazepam (Ativan) 0.5 mg HS PRN PO SLEEP; Start 08/15/16 at 08:30 Mometasone Furoate (Elocon 0.1% Cream) 1 applic DAILY TOP Last administered on 08/17/16 09:12; Admin Dose 1 APPLIC; Start 08/15/16 at 10:00 Paroxetine HCl (Paxil) 40 mg DAILY PO Last administered on 08/17/16 09:13; Admin Dose 40 MG; Start 08/15/16 at 09:00 Ranitidine HCl (Zantac) 300 mg HS PO Last administered on 08/16/16 22:12; Admin Dose 300 MG; Start 08/15/16 at 21:00 Tamsulosin HCl (Flomax) 0.4 mg DAILY PO Last administered on 08/17/16 09:13; Admin Dose 0.4 MG; Start 08/15/16 at 09:00 Fluticasone Propionate (Flonase 0.05% Nasal) 2 spray DAILY NASAL Last administered on 08/17/16 09:12; Admin Dose 2 SPRAY; Start 08/15/16 at 10:00 Latanoprost (Xalatan) 1 drop HS BOTH EYES Last administered on 08/16/16 22:12 ; Admin Dose 1 DROP; Start 08/15/16 at 21:00 GAUTAM CHIN MD Aug 17, 2016 14:54
--- NOTE | 2016-08-17 14:55 | PDOCDIS ---
Discharge Instructions CONDITION Patient Condition: Good HOME CARE INSTRUCTIONS: Special Diet: renal diet ACTIVITY: Activity Restrictions: Slowly Increase Activity Rest between Activity Avoid heavy lifting Avoid Heavy Housework FOLLOW UP/APPOINTMENTS Follow-up Plan follow up with his own PMD in 1-2 weeks after discharge., Follow up with Dr.Kalpesh Chin in 2-3 week after discharge GAUTAM CHIN MD Aug 17, 2016 14:55
--- NOTE | 2016-08-18 00:18 | DS ---
DATE OF ADMISSION: 08/14/2016 DATE OF DISCHARGE: 08/17/2016 FINAL DISCHARGE DIAGNOSES: 1. Acute hyperkalemia, multifactorial secondary to NSAID use, SABA inhibitors, and aldosterone effec t. 2. Nonoliguric acute kidney injury on possible chronic kidney disease secondary to hemodynamics. 3. Hypertension. 4. History of chronic abdominal pain. 5. Fatty liver. 6. Obesity. 7. History of chronic kidney disease of unclear etiology. CONSULTATIONS DONE DURING THIS HOSPITALIZATION: Nephrology consult, Dr. Sethi. HOSPITAL COURSE: This is an 81-year-old male with past medical history of hypertension, hyperlipide tati, history of chronic pain secondary to arthritis, who has been using naproxen, diclofenac, and al so has been using Losartan with spironolactone for his hypertension. The patient got admitted for a cute hyperkalemia with potassium of 7.1 on admission. He also had acute kidney injury with a creati nine bump up to 1.2. He was given IV fluids. His antihypertensives including losartan and spironol actone were stopped. His diclofenac and Meloxicam was also stopped. The patient was given IV fluid s. After getting the IV fluids, he improved back to the normal baseline creatinine. He also had hy perkalemia, but his potassium was resolved after getting the Kayexalate and treatment of hyperkalemi a, and after stopping his blood pressure medications. He remained symptom free. No chest pain, pal pitations at the time of the discharge, and he got discharged home with the continuation of his old home medication except the pain medications and spironolactone on discharge. DISPOSITION: To home. DISCHARGE CONDITION: Stable and improved compared to admission. DISCHARGE ACTIVITIES: As tolerated, slowly resume to the normal baseline activity. DISCHARGE DIET: Renal diet. DISCHARGE MEDICATIONS: As per medical reconciliation. DISCHARGE FOLLOWUP AND INSTRUCTIONS 1. The patient is to follow up with his own primary care doctor through his HMO insurance 1-2 weeks after discharge. 2. The patient is to follow up with subsequent physician as outpatient 1-2 weeks after discharge. 3. He is also given Dr. Gautam Chin in outpatient renal clinic for outpatient clinic followup upo n discharge, if the family is interested. Total time spent in discussion, discharge plan, communicating with the patient's daughter on the naz ne, and also communicated with the patient and nursing staff on the floor, took more than 60 minutes . Dictated By: GAUTAM CHIN MD, KP/MAYELIN Conf#: [id number] DID#: [id number]
[2016-08-18 11:57] LABS: MICROALBUMIN 0.5 mg/dL
== END 2016-08-17 18:25 | disposition home or self-care (01) | DRG 684 ==
LOC: E/R 11:16 → MS4 12:26
PROVIDERS: ADMIT Hospitalist; ATTEND Hospitalist
DX: N17.9 Acute kidney failure, unspecified (principal); K76.0 Fatty (change of) liver, not elsewhere classified; E87.5 Hyperkalemia; K21.9 Gastro-esophageal reflux disease without esophagitis; F41.9 Anxiety disorder, unspecified; K80.20 Calculus of gallbladder without cholecystitis without obstruction; E66.9 Obesity, unspecified; Z68.33 Body mass index [BMI] 33.0-33.9, adult; T39.315A Adverse effect of propionic acid derivatives, initial encounter; T44.5X5A Adverse effect of predominantly beta-adrenoreceptor agonists, initial encounter; T50.0X5A Adverse effect of mineralocorticoids and their antagonists, initial encounter; Y92.019 Unspecified place in single-family (private) house as the place of occurrence of the external cause; I12.9 Hypertensive chronic kidney disease with stage 1 through stage 4 chronic kidney disease, or unspecified chronic kidney disease; N18.9 Chronic kidney disease, unspecified
CPT/HCPCS: 71010; 76775; 80048; 81003; 82043; 82962; 83735; 84100; 84132; 84155; 84300; 84484; 85025; 93005; 94664; 96374; 96375; J0360; J1644; J1815; J1940; J2270; J2405; J7030

== ENCOUNTER 2016-10-08 07:00 | Inpatient (IN) | payer MEDICARE, OTHER ==
[2016-10-08] VITALS (33 sets, daily range): BP systolic 99–169; BP diastolic 44–74; PULSE 72–87; RESP 10–22; Ht 165.1 cm; Wt 85.0 kg
[~2016-10-08] VITALS: Ht 165.1 cm; Wt 85.0 kg
[~2016-10-08 07:00] MED LIST changes: +AMLO-145 PO; +AMLO-147 PO; +ATEN50TA PO; +CEFAZOLIN 2 GM/50 ML (PMX) 50 ML IVPB SCH; +NAPR550T48 PO; +PARO-37 PO; +[UNRECOGNIZED DRUG - CODE]; +[UNRECOGNIZED DRUG - OTHER]
[2016-10-08] MEDS ORDERED: PARO40TA79 PO (08:44)
[2016-10-08] MEDS ORDERED: FURO40TA4 PO (08:45)
[2016-10-08] MEDS ORDERED: FENO145T19 PO (08:45)
[2016-10-08] MEDS ORDERED: LEVO25TA53 PO (08:45)
[2016-10-08] MEDS ORDERED: TAMS0.4C2 PO (08:46)
[2016-10-08] MEDS ORDERED: AMLO-147 PO (08:46)
[2016-10-08] MEDS ORDERED: NIT4 SL (08:46)
[2016-10-08] MEDS ORDERED: TEMA15CA PO (08:47)
[2016-10-08] MEDS ORDERED: BUPIVACAINE 0.25% (MPF) 30 ML INJ ONE (09:12)
[2016-10-08] MEDS ORDERED: LIDOCAINE 1% (MDV) 20 ML INJ ONE (10:19)
[2016-10-08] MEDS ORDERED: FENTAnyl 50 MCG/ML VIAL ONE ×2 (10:19→10:50)
[2016-10-08] MEDS ORDERED: ETOMIDATE 20 MG INJ ONE (10:19)
[2016-10-08] MEDS ORDERED: PROPOFOL 20 ML ONE (10:19)
[2016-10-08] MEDS ORDERED: ROCURONIUM 50 MG INJ ONE (10:19)
[2016-10-08] MEDS ORDERED: ROPIVACAINE 0.5 % 30 ML VIAL ONE (10:30)
[2016-10-08] MEDS ORDERED: CEFAZOLIN 1 GM INJ ONE (10:43)
[2016-10-08] MEDS ORDERED: PHENYLephrine (100 MCG/ML) 5ML SYG ONE (11:09)
[2016-10-08] MEDS ORDERED: SUGAMMADEX SODIUM 200 MG/2 ML VIAL IV ONE (11:34)
[2016-10-08] MEDS ORDERED: ONDANSETRON 4 MG INJ ONE (11:36)
[2016-10-08] MEDS ORDERED: FAMOTIDINE 20 MG INJ ONE (11:37)
[2016-10-08] MEDS ORDERED: SOD CHLORIDE 0.9% 1,000 ML IV SCH (11:37)
[2016-10-08] MEDS ORDERED: DEXAMETHASONE 4 MG/ML 1 ML INJ ONE (11:37)
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
[2016-10-08] MEDS ORDERED: HYDROmorphONE (0.2 MG/ML) 10ML SYG IV ONE (11:50)
[2016-10-08] MEDS ORDERED: hydrALAzine 20 MG INJ IV PRN (12:00)
[2016-10-08] MEDS ORDERED: PROCHLORPERAZINE 10 MG INJ IV PRN (12:00)
[2016-10-08] MEDS ORDERED: morphine 2 MG INJ IV PRN (12:00)
[2016-10-08] MEDS ORDERED: HYDROCODONE/APAP (5/325) TAB PO PRN (12:00)
[2016-10-08] MEDS ORDERED: HYDROmorphONE (0.2 MG/ML) 10ML SYG IV PRN ×2 (12:00)
[2016-10-08] MEDS ORDERED: METOCLOPRAMIDE 10 MG INJ IV PRN (12:00)
[2016-10-08] MEDS ORDERED: MEPERIDINE 25 MG INJ IV PRN (12:00)
[2016-10-08] MEDS ORDERED: MEPERIDINE 25 MG INJ ONE (12:05)
[2016-10-08] MEDS ORDERED: MIDAZOLAM 1 MG/ML 2 ML INJ ONE (12:20)
[2016-10-08] MEDS ORDERED: MIDAZOLAM 1 MG/ML 2 ML INJ IV ONE (12:30)
[2016-10-08] MEDS ORDERED: MIDAZOLAM 1 MG/ML 2 ML INJ IV PRN (12:30)
[2016-10-08 13:08] LABS: BASOPHIL # 0.1 10^3/ul (0.0-0.1); BASOPHILS % 0.8 % (0.0-2.0); EOSINOPHILS % 0.4 % (0.0-7.0); HEMOGLOBIN 12.6 g/dl (14.0-18.0); LYMPHOCYTES # 1.2 10^3/ul (0.8-2.9); LYMPHOCYTES % 15.5 % (15.0-51.0); MEAN CORPUSCULAR HGB CONC 34.1 g/dl (32.0-37.0); MEAN CORPUSCULAR VOLUME 90.9 fl (82.0-101.0); MEAN PLATELET VOLUME 10.5 fl (7.4-10.4); MONOCYTE # 0.3 10^3/ul (0.3-0.9); MONOCYTES % 3.1 % (0.0-11.0); NEUTROPHILS % 79.7 % (39.0-77.0); PLATELET COUNT 183 10^3/UL (140-415); RED BLOOD COUNT 4.07 10^6/ul (4.70-6.10); RED CELL DISTRIBUTION WIDTH 12.1 % (11.5-14.5)
[2016-10-08 13:37] LABS: ALBUMIN 3.7 g/dl (3.3-4.9); ALBUMIN/GLOBULIN RATIO 1.27; BILIRUBIN,INDIRECT 0.3 mg/dl (0-1.1); BILIRUBIN,TOTAL 0.3 mg/dl (0.2-1.3); TOTAL PROTEIN 6.6 g/dl (6.1-8.1)
[2016-10-08 13:40] LABS: CALCIUM 8.2 mg/dl (8.4-10.2); CREATININE 0.91 mg/dl (0.61-1.24); POTASSIUM 3.9 mmol/L (3.5-5.1)
[2016-10-08] MEDS ORDERED: HYDROmorphONE 0.2 MG/ML PCA ONE (13:51)
[2016-10-08] MEDS ORDERED: HYDROmorphONE 0.2 MG/ML PCA IV SCH ×2 (14:00)
[2016-10-08] MEDS ORDERED: ONDANSETRON 4 MG INJ IV PRN (16:30)
[2016-10-08] MEDS: SOD CHLORIDE 0.9% 1,000 ML IV SCH ×2 (18:14→19:20)
[2016-10-08] MEDS ORDERED: NITROGLYCERIN (SL) 0.4 MG TAB SL PRN (19:00)
[2016-10-08] MEDS: CEFAZOLIN 2 GM/50 ML (PMX) 50 ML IVPB SCH ×2 (20:00→22:13)
[2016-10-08] MEDS: HYDROmorphONE 0.2 MG/ML PCA IV SCH (20:10)
[2016-10-08] MEDS: TAMSULOSIN (SR) 0.4 MG CAP PO SCH (20:48)
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
[2016-10-09] VITALS (9 sets, daily range): BP systolic 125–150; BP diastolic 58–69; PULSE 67–72; RESP 16–20
[2016-10-09] MEDS: CEFAZOLIN 2 GM/50 ML (PMX) 50 ML IVPB SCH (05:06)
[2016-10-09 05:47] LABS: BASOPHILS % 0.3 % (0.0-2.0); HEMATOCRIT 35.7 % (42.0-52.0); HEMOGLOBIN 11.9 g/dl (14.0-18.0); LYMPHOCYTES # 0.8 10^3/ul (0.8-2.9); LYMPHOCYTES % 8.6 % (15.0-51.0); MEAN CORPUSCULAR HEMOGLOBIN 30.4 pg (29.0-33.0); MEAN CORPUSCULAR HGB CONC 33.3 g/dl (32.0-37.0); MEAN CORPUSCULAR VOLUME 91.1 fl (82.0-101.0); MEAN PLATELET VOLUME 10.7 fl (7.4-10.4); MONOCYTE # 0.7 10^3/ul (0.3-0.9); MONOCYTES % 7.3 % (0.0-11.0); NEUTROPHILS % 83.5 % (39.0-77.0); PLATELET COUNT 177 10^3/UL (140-415); RED BLOOD COUNT 3.92 10^6/ul (4.70-6.10); RED CELL DISTRIBUTION WIDTH 12.6 % (11.5-14.5); WHITE BLOOD COUNT 9.3 10^3/ul (4.8-10.8)
[2016-10-09 06:08] LABS: ALBUMIN 3.6 g/dl (3.3-4.9); ALBUMIN/GLOBULIN RATIO 1.12; BILIRUBIN,INDIRECT 0.2 mg/dl (0-1.1); BILIRUBIN,TOTAL 0.2 mg/dl (0.2-1.3); CALCIUM 8.2 mg/dl (8.4-10.2); CREATININE 0.87 mg/dl (0.61-1.24); POTASSIUM 4.8 mmol/L (3.5-5.1); TOTAL PROTEIN 6.8 g/dl (6.1-8.1)
[2016-10-09] MEDS: LEVOTHYROXINE 25 MCG TAB PO SCH (06:28)
[2016-10-09] MEDS: FENOFIBRATE 145 MG TAB PO SCH (08:24)
[2016-10-09] MEDS: AMLODIPINE 10 MG TAB PO SCH (08:25)
[2016-10-09] MEDS: PAROXETINE 20 MG TAB PO SCH (08:25)
[2016-10-09] MEDS: HYDROmorphONE 0.2 MG/ML PCA IV SCH (08:32)
[2016-10-09] MEDS: SOD CHLORIDE 0.9% 1,000 ML IV SCH ×2 (09:17→22:18)
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
--- NOTE | 2016-10-09 17:06 | PN ---
Date/Time of Note Date/Time of Note DATE: 10/09/16 TIME: 17:03 Assessment/Plan VTE Prophylaxis VTE Prophylaxis Intervention: SCD's Lines/Catheters IV Catheter Type (from Nrs): Peripheral IV Assessment/Plan Chief Complaint/Hosp Course Patient's continues to complain of pain currently is adequately controlled with TERMITE TREATER Dilaudid, denies nausea and vomiting. Problems: Assessment/Plan -Symptomatic gallstone status post open cholecystectomy. Continue Dilaudid TERMITE TREATER for pain and Zofran as needed for nausea. Advance diet per surgery. -Hypertension. Continue Norvasc. -Hyperlipidemia, continue TriCor -Hypothyroidism, continue Synthroid -Obesity. Further recommendations based on clinical course. Plan of care discussed with Dr. Brito Exam/Review of Systems Vital Signs Vitals Vital Signs Date Time Temp Pulse Resp B/P Pulse Ox O2 Delivery O2 Flow Rate FiO2 10/09/16 16:05 98.2 76 18 129/60 92 10/09/16 07:44 Nasal Cannula 2.0 Intake and Output 10/08/16 10/08/16 10/09/16 15:00 23:00 07:00 Intake Total 920 ml 50 ml 1250 ml Output Total 210 ml 1800 ml Balance 710 ml 50 ml -550 ml Exam Constitutional: alert Head: normocephalic Neck: supple Respiratory: normal air movement Cardiovascular: nl pulses Gastrointestinal: other (Status post surgery), soft Extremities: normal pulses Neurological: nl mental status Results Result Diagram: 10/09/16 0514 10/09/16 0514 Results 24 hrs Laboratory Tests Test 10/09/16 05:14 White Blood Count 9.3 Red Blood Count 3.92 L Hemoglobin 11.9 L Hematocrit 35.7 L Mean Corpuscular Volume 91.1 Mean Corpuscular Hemoglobin 30.4 Mean Corpuscular Hemoglobin Concent 33.3 Red Cell Distribution Width 12.6 Platelet Count 177 Mean Platelet Volume 10.7 H Neutrophils % 83.5 H Lymphocytes % 8.6 L Monocytes % 7.3 Eosinophils % 0.0 Basophils % 0.3 Nucleated Red Blood Cells % 0.0 Neutrophils # (Manual) 8 H Lymphocytes # 0.8 Monocytes # 0.7 Eosinophils # 0.0 Basophils # 0.0 Nucleated Red Blood Cells # 0.0 Sodium Level 142 Potassium Level 4.8 Chloride Level 103 Carbon Dioxide Level 27 Anion Gap 17 H Blood Urea Nitrogen 14 Creatinine 0.87 Glucose Level 109 Calcium Level 8.2 L Total Bilirubin 0.2 Direct Bilirubin 0.00 Indirect Bilirubin 0.2 Aspartate Amino Transf (AST/SGOT) 82 #H Alanine Aminotransferase (ALT/SGPT) 49 Alkaline Phosphatase 57 Total Protein 6.8 Albumin 3.6 Globulin 3.20 Albumin/Globulin Ratio 1.12 Medications Medications Current Medications Sodium Chloride (NS) 1,000 ml @ 75 mls/hr [id number] IV Last administered on 10/09 09:17; Admin Dose 75 MLS/HR; Start 10/08/16 at 06:00 Morphine Sulfate (morphine) 2 mg Q2H PRN IV PAIN LEVEL 6-10; Start 10/08/16 at 12:00 Acetaminophen/ Hydrocodone Bitart ([place] (5/325)) 1 tab Q6H PRN PO PAIN LEVEL 6 -10; Start 10/08/16 at 12:00 Hydromorphone HCl (Dilaudid TERMITE TREATER) 0.0 MG/HR CONTINUOUS RATE ... Q4PCA IV Last administered on 10/09/16 08:32; Admin Dose 6 MG; Start 10/08/16 at 14:30 Ondansetron HCl (Zofran Inj) 4 mg Q6H PRN IV NAUSEA AND/OR VOMITING; Start at 16:30 Amlodipine Besylate (Norvasc) 10 mg DAILY PO Last administered on 10/09/16 08: 25; Admin Dose 10 MG; Start 10/09/16 at 09:00 Fenofibrate (Tricor) 145 mg DAILY PO Last administered on 10/09/16 08:24; Admin Dose 145 MG; Start 10/09/16 at 09:00 Nitroglycerin (Nitroglycerin (Sl Tab) 0.4 Mg) 0.4 tab [id number] PRN SL CHEST PAIN; Start 10/08/16 at 19:00 Paroxetine HCl (Paxil) 40 mg DAILY PO Last administered on 10/09/16 08:25; Admin Dose 40 MG; Start 10/09/16 at 09:00 Tamsulosin HCl (Flomax) 0.4 mg HS PO Last administered on 10/08/16 20:48; Admin Dose 0.4 MG; Start 10/08/16 at 21:00 JAMES NICOLAS Oct 09, 2016 17:06
[2016-10-09] MEDS: TAMSULOSIN (SR) 0.4 MG CAP PO SCH (20:47)
[2016-10-10] VITALS (8 sets, daily range): BP systolic 137–164; BP diastolic 60–73; PULSE 65–86; RESP 18–20
[2016-10-10 06:40] LABS: BASOPHIL # 0.1 10^3/ul (0.0-0.1); BASOPHILS % 0.7 % (0.0-2.0); EOSINOPHILS # 0.1 10^3/ul (0.0-0.5); EOSINOPHILS % 1.1 % (0.0-7.0); HEMATOCRIT 35.8 % (42.0-52.0); HEMOGLOBIN 11.8 g/dl (14.0-18.0); LYMPHOCYTES # 1.7 10^3/ul (0.8-2.9); LYMPHOCYTES % 19.2 % (15.0-51.0); MEAN CORPUSCULAR HEMOGLOBIN 30.3 pg (29.0-33.0); MEAN CORPUSCULAR VOLUME 91.8 fl (82.0-101.0); MEAN PLATELET VOLUME 11.2 fl (7.4-10.4); MONOCYTE # 0.8 10^3/ul (0.3-0.9); MONOCYTES % 9.4 % (0.0-11.0); NEUTROPHILS % 68.9 % (39.0-77.0); PLATELET COUNT 166 10^3/UL (140-415); RED CELL DISTRIBUTION WIDTH 12.5 % (11.5-14.5); WHITE BLOOD COUNT 8.8 10^3/ul (4.8-10.8)
[2016-10-10 07:16] LABS: CALCIUM 8.4 mg/dl (8.4-10.2); CREATININE 0.89 mg/dl (0.61-1.24); POTASSIUM 3.9 mmol/L (3.5-5.1)
[2016-10-10] MEDS: LEVOTHYROXINE 25 MCG TAB PO SCH (08:34)
[2016-10-10] MEDS: AMLODIPINE 10 MG TAB PO SCH (08:34)
[2016-10-10] MEDS: FENOFIBRATE 145 MG TAB PO SCH (08:34)
[2016-10-10] MEDS: PAROXETINE 20 MG TAB PO SCH (08:34)
[2016-10-10] MEDS: HYDROmorphONE 0.2 MG/ML PCA IV SCH ×2 (08:50→19:31)
--- NOTE | 2016-10-10 08:52 | PN ---
Date/Time of Note Date/Time of Note DATE: 10/10/16 TIME: 08:51 Assessment/Plan VTE Prophylaxis VTE Prophylaxis Intervention: other Lines/Catheters IV Catheter Type (from Nrsg): Peripheral IV Assessment/Plan Chief Complaint/Hosp Course -Symptomatic gallstone status post open cholecystectomy. Continue Dilaudid SET BUILDER for pain and Zofran as needed for nausea. Advance diet per surgery. -Hypertension. Continue Norvasc. -Hyperlipidemia, continue TriCor -Hypothyroidism, continue Synthroid -Obesity. Problems: Subjective 24 Hr Interval Summary Free Text/Dictation Patient still complain of significant amount of abdominal pain Exam/Review of Systems Vital Signs Vitals Vital Signs Date Time Temp Pulse Resp B/P Pulse Ox O2 Delivery O2 Flow Rate FiO2 10/10/16 07:47 98.5 74 18 149/68 95 10/09/16 07:44 Nasal Cannula 2.0 Intake and Output 10/09/16 10/09/16 10/10/16 15:00 23:00 07:00 Intake Total 100 ml 2140 ml 1125 ml Balance 100 ml 2140 ml 1125 ml Exam Constitutional: well developed Head: atraumatic, normocephalic Neck: supple Respiratory: clear to auscultation Cardiovascular: regular rate and rhythm Gastrointestinal: soft, tender Extremities: normal pulses Results Result Diagram: 10/10/1652010/10/16 0521 Results 24 hrs Laboratory Tests Test 10/10/16 05:21 White Blood Count 8.8 Red Blood Count 3.90 L Hemoglobin 11.8 L Hematocrit 35.8 L Mean Corpuscular Volume 91.8 Mean Corpuscular Hemoglobin 30.3 Mean Corpuscular Hemoglobin Concent 33.0 Red Cell Distribution Width 12.5 Platelet Count 166 Mean Platelet Volume 11.2 H Neutrophils % 68.9 Lymphocytes % 19.2 Monocytes % 9.4 Eosinophils % 1.1 Basophils % 0.7 Nucleated Red Blood Cells % 0.0 Neutrophils # (Manual) 6 Lymphocytes # 1.7 Monocytes # 0.8 Eosinophils # 0.1 Basophils # 0.1 Nucleated Red Blood Cells # 0.0 Sodium Level 142 Potassium Level 3.9 Chloride Level 103 Carbon Dioxide Level 26 Anion Gap 17 H Blood Urea Nitrogen 16 Creatinine 0.89 Glucose Level 68 #L Calcium Level 8.4 Medications Medications Current Medications Sodium Chloride (NS) 1,000 ml @ 75 mls/hr [id number] IV Last administered on 8/18 /17at 22:18; Admin Dose 75 MLS/HR; Start 10/08/16 at 06:00 Morphine Sulfate (morphine) 2 mg Q2H PRN IV PAIN LEVEL 6-10; Start 10/08/16 at 12:00 Acetaminophen/ Hydrocodone Bitart ([place] (5/325)) 1 tab Q6H PRN PO PAIN LEVEL 6 -10; Start 10/08/16 at 12:00 Hydromorphone HCl (Dilaudid SET BUILDER) 0.0 MG/HR CONTINUOUS RATE ... Q4PCA IV Last administered on 10/09/16 08:32; Admin Dose 6 MG; Start 10/08/16 at 14:30 Ondansetron HCl (Zofran Inj) 4 mg Q6H PRN IV NAUSEA AND/OR VOMITING; Start at 16:30 Amlodipine Besylate (Norvasc) 10 mg DAILY PO Last administered on 10/10/16 08: 34; Admin Dose 10 MG; Start 10/09/16 at 09:00 Fenofibrate (Tricor) 145 mg DAILY PO Last administered on 10/10/16 08:34; Admin Dose 145 MG; Start 10/09/16 at 09:00 Nitroglycerin (Nitroglycerin (Sl Tab) 0.4 Mg) 0.4 tab [id number] PRN SL CHEST PAIN; Start 10/08/16 at 19:00 Paroxetine HCl (Paxil) 40 mg DAILY PO Last administered on 10/10/16 08:34; Admin Dose 40 MG; Start 10/09/16 at 09:00 Tamsulosin HCl (Flomax) 0.4 mg HS PO Last administered on 10/09/16 20:47; Admin Dose 0.4 MG; Start 10/08/16 at 21:00 KENDALL RUGGIERO Oct 10, 2016 08:52
[2016-10-10] MEDS: SOD CHLORIDE 0.9% 1,000 ML IV SCH ×2 (11:20→19:30)
--- NOTE | 2016-10-10 17:22 | PN ---
DATE: 09/09/2016 Postoperative day number 2 is status post open cholecystectomy. SUBJECTIVE: Complains of pain at the site of the incision. No nausea. No vomiting. No diarrhea. Has passed flatus. OBJECTIVE: VITAL SIGNS: Stable. Temperature 98.5, heart rate 74, respirations 18, blood pressure 149/68, saturation 95% on room air. LABORATORY: WBC 8800, 68% segs, hemoglobin is stable. ABDOMEN: Slightly distended. Dressing is intact. ASSESSMENT: This is an 81-year-old gentleman status post open cholecystectomy. Postoperative day number 2. The patient has tolerated the diet. Has not had a bowel movement. No nausea. No vomiting. No fever. Complains of too much pain at the site of the incision. PLAN: Continue current care, observe, and give pain medication. Dictated By: Marcelo Gallagher MD /everett/flakito /Document#: [id number]
[2016-10-10] MEDS: TAMSULOSIN (SR) 0.4 MG CAP PO SCH (21:13)
[2016-10-11] VITALS (12 sets, daily range): BP systolic 124–158; BP diastolic 60–75; PULSE 60–77; RESP 18–20
[2016-10-11] MEDS: LEVOTHYROXINE 25 MCG TAB PO SCH (05:40)
[2016-10-11] MEDS: AMLODIPINE 10 MG TAB PO SCH (08:43)
[2016-10-11] MEDS: FENOFIBRATE 145 MG TAB PO SCH (08:43)
[2016-10-11] MEDS: PAROXETINE 20 MG TAB PO SCH (08:43)
[2016-10-11] MEDS: SOD CHLORIDE 0.9% 1,000 ML IV SCH (10:26)
[2016-10-11] MEDS: HYDROmorphONE 0.2 MG/ML PCA IV SCH (10:27)
--- NOTE | 2016-10-11 10:48 | PN ---
Date/Time of Note Date/Time of Note DATE: 10/11/16 TIME: 10:47 Assessment/Plan VTE Prophylaxis VTE Prophylaxis Intervention: other Lines/Catheters IV Catheter Type (from Nrsg): Peripheral IV Assessment/Plan Chief Complaint/Hosp Course -Symptomatic gallstone status post open cholecystectomy. Continue Dilaudid LITERARY WRITER for pain and Zofran as needed for nausea. Advance diet per surgery. -Hypertension. Continue Norvasc. -Hyperlipidemia, continue TriCor -Hypothyroidism, continue Synthroid -Obesity. Problems: Subjective 24 Hr Interval Summary Free Text/Dictation Patient is feeling better, pain is under control Exam/Review of Systems Vital Signs Vitals Vital Signs Date Time Temp Pulse Resp B/P Pulse Ox O2 Delivery O2 Flow Rate FiO2 10/11/16 07:49 98.4 66 18 158/74 94 10/09/16 07:44 Nasal Cannula 2.0 Intake and Output 10/10/16 10/10/16 10/11/16 15:00 23:00 07:00 Intake Total 1115 ml 1030 ml Balance 1115 ml 1030 ml Exam Constitutional: well developed Head: atraumatic, normocephalic Neck: supple Respiratory: clear to auscultation Cardiovascular: regular rate and rhythm Gastrointestinal: non-tender, soft Extremities: normal pulses Results Result Diagram: 10/10/1652010/10/16520 Medications Medications Current Medications Sodium Chloride (NS) 1,000 ml @ 75 mls/hr [id number] IV Last administered on 10/11 10:26; Admin Dose 75 MLS/HR; Start 10/08/16 at 06:00 Morphine Sulfate (morphine) 2 mg Q2H PRN IV PAIN LEVEL 6-10; Start 10/08/16 at 12:00 Acetaminophen/ Hydrocodone Bitart ([place] (5/325)) 1 tab Q6H PRN PO PAIN LEVEL 6 -10; Start 10/08/16 at 12:00 Hydromorphone HCl (Dilaudid LITERARY WRITER) 0.0 MG/HR CONTINUOUS RATE ... Q4PCA IV Last administered on 10/11/16 10:27; Admin Dose 6 MG; Start 10/08/16 at 14:30 Ondansetron HCl (Zofran Inj) 4 mg Q6H PRN IV NAUSEA AND/OR VOMITING; Start at 16:30 Amlodipine Besylate (Norvasc) 10 mg DAILY PO Last administered on 10/11/16 08: 43; Admin Dose 10 MG; Start 10/09/16 at 09:00 Fenofibrate (Tricor) 145 mg DAILY PO Last administered on 10/11/16 08:43; Admin Dose 145 MG; Start 10/09/16 at 09:00 Nitroglycerin (Nitroglycerin (Sl Tab) 0.4 Mg) 0.4 tab [id number] PRN SL CHEST PAIN; Start 10/08/16 at 19:00 Paroxetine HCl (Paxil) 40 mg DAILY PO Last administered on 10/11/16 08:43; Admin Dose 40 MG; Start 10/09/16 at 09:00 Tamsulosin HCl (Flomax) 0.4 mg HS PO Last administered on 10/10/16 21:13; Admin Dose 0.4 MG; Start 10/08/16 at 21:00 KENDALL RUGGIERO Oct 11, 2016 10:48
[2016-10-11] MEDS ORDERED: MAGNESIUM HYDROXIDE 30ML CUP PO PRN (14:00)
[2016-10-11] MEDS: KETOROLAC 15 MG INJ IV SCH ×3 (14:07→23:27)
--- NOTE | 2016-10-11 14:48 | PN ---
DATE: 10/11/2016 SUBJECTIVE DATA: Postop day number 3, status post open cholecystectomy. Still complaining to too much pain at the site of the incision. He has tolerated diet. No nausea, no vomiting. No bowel movement. Passing flatus. OBJECTIVE DATA: Vital signs are stable. Temperature 98. Heart rate 88. LABORATORY AND DIAGNOSTIC DATA: No labs done today. PHYSICAL EXAMINATION: HEART: Regular rhythm. ABDOMEN: Mildly distended, tender around the incision site. Wound is clean. EXTREMITIES: No calf tenderness. ASSESSMENT AND PLAN: An 81-year-old male status post open cholecystectomy postop day number 3, complaining about too much pain and is using REAL ESTATE RENTAL AGENT. He has been passing gas, but no bowel movements. We will start patient on Toradol 70 mg IV q. 6 hours around the clock. We will give the patient Milk of Magnesia to initiate bowel movement. If he can tolerate less pain medication by tomorrow, he may be discharged on Wednesday. Dictated By: Marcelo Gallgaher MD /everett/more /Document#: [id number]
[2016-10-11] MEDS: TAMSULOSIN (SR) 0.4 MG CAP PO SCH (20:23)
[2016-10-12] MEDS: SOD CHLORIDE 0.9% 1,000 ML IV SCH (01:18)
[2016-10-12 01:38] VITALS: BP 151/70; RESP 20
[2016-10-12 02:00] VITALS: BP 143/69; PULSE 78; RESP 18
[2016-10-12 03:40] VITALS: BP 136/68; RESP 18
[2016-10-12 06:00] VITALS: BP 144/67; PULSE 64; RESP 18
[2016-10-12] MEDS: LEVOTHYROXINE 25 MCG TAB PO SCH (06:07)
[2016-10-12] MEDS: KETOROLAC 15 MG INJ IV SCH ×2 (06:07→12:11)
[2016-10-12 06:45] LABS: BASOPHILS % 0.7 % (0.0-2.0); EOSINOPHILS # 0.2 10^3/ul (0.0-0.5); EOSINOPHILS % 3.5 % (0.0-7.0); HEMATOCRIT 35.9 % (42.0-52.0); LYMPHOCYTES # 1.5 10^3/ul (0.8-2.9); LYMPHOCYTES % 24.4 % (15.0-51.0); MEAN CORPUSCULAR HEMOGLOBIN 30.5 pg (29.0-33.0); MEAN CORPUSCULAR HGB CONC 33.4 g/dl (32.0-37.0); MEAN CORPUSCULAR VOLUME 91.3 fl (82.0-101.0); MEAN PLATELET VOLUME 10.8 fl (7.4-10.4); MONOCYTE # 0.6 10^3/ul (0.3-0.9); MONOCYTES % 9.2 % (0.0-11.0); NEUTROPHILS % 61.9 % (39.0-77.0); PLATELET COUNT 211 10^3/UL (140-415); RED BLOOD COUNT 3.93 10^6/ul (4.70-6.10); RED CELL DISTRIBUTION WIDTH 12.2 % (11.5-14.5); WHITE BLOOD COUNT 6.1 10^3/ul (4.8-10.8)
[2016-10-12 07:44] VITALS: BP 131/62; RESP 18
[2016-10-12] MEDS: PAROXETINE 20 MG TAB PO SCH (08:16)
[2016-10-12] MEDS: FENOFIBRATE 145 MG TAB PO SCH (08:17)
[2016-10-12] MEDS: AMLODIPINE 10 MG TAB PO SCH (08:17)
--- NOTE | 2016-10-12 08:32 | PN ---
Date/Time of Note Date/Time of Note DATE: 10/12/16 TIME: 08:32 Assessment/Plan VTE Prophylaxis VTE Prophylaxis Intervention: SCD's Lines/Catheters IV Catheter Type (from Nrsg): Peripheral IV Assessment/Plan Chief Complaint/Hosp Course lap rimma converted to open due to prior abdominal exp lap for trauma Problems: Assessment/Plan doing well tolerating diet ok to dc home from surgical standpoint Subjective 24 Hr Interval Summary Free Text/Dictation doing well, tolerated diet, has appropriate pain Exam/Review of Systems Vital Signs Vitals Vital Signs Date Time Temp Pulse Resp B/P Pulse Ox O2 Delivery O2 Flow Rate FiO2 10/12/16 07:44 97.9 74 18 131/62 94 10/09/16 07:44 Nasal Cannula 2.0 Intake and Output 10/11/16 10/11/16 10/12/16 15:00 23:00 07:00 Intake Total 450 ml 1270 ml 1165 ml Output Total 300 ml 900 ml Balance 450 ml 970 ml 265 ml Exam c/d/i Results Result Diagram: 10/12/16 0552 10/10/16 0521 Results 24 hrs Laboratory Tests Test 10/12/16 05:52 White Blood Count 6.1 # Red Blood Count 3.93 L Hemoglobin 12.0 L Hematocrit 35.9 L Mean Corpuscular Volume 91.3 Mean Corpuscular Hemoglobin 30.5 Mean Corpuscular Hemoglobin Concent 33.4 Red Cell Distribution Width 12.2 Platelet Count 211 # Mean Platelet Volume 10.8 H Neutrophils % 61.9 Lymphocytes % 24.4 Monocytes % 9.2 Eosinophils % 3.5 Basophils % 0.7 Nucleated Red Blood Cells % 0.0 Neutrophils # (Manual) 4 Lymphocytes # 1.5 Monocytes # 0.6 Eosinophils # 0.2 Basophils # 0.0 Nucleated Red Blood Cells # 0.0 Medications Medications Current Medications Sodium Chloride (NS) 1,000 ml @ 75 mls/hr [id number] IV Last administered on 10/12t 01:18; Admin Dose 75 MLS/HR; Start 10/08/16 at 06:00 Morphine Sulfate (morphine) 2 mg Q2H PRN IV PAIN LEVEL 6-10; Start 10/08/16 at 12:00 Acetaminophen/ Hydrocodone Bitart ([place] (5/325)) 1 tab Q6H PRN PO PAIN LEVEL 6 -10; Start 10/08/16 at 12:00 Hydromorphone HCl (Dilaudid HISTORICAL MANUSCRIPTS CURATOR) 0.0 MG/HR CONTINUOUS RATE ... Q4PCA IV Last administered on 10/11/16 10:27; Admin Dose 6 MG; Start 10/08/16 at 14:30 Ondansetron HCl (Zofran Inj) 4 mg Q6H PRN IV NAUSEA AND/OR VOMITING; Start at 16:30 Amlodipine Besylate (Norvasc) 10 mg DAILY PO Last administered on 10/12/16 08: 17; Admin Dose 10 MG; Start 10/09/16 at 09:00 Fenofibrate (Tricor) 145 mg DAILY PO Last administered on 10/12/16 08:17; Admin Dose 145 MG; Start 10/09/16 at 09:00 Nitroglycerin (Nitroglycerin (Sl Tab) 0.4 Mg) 0.4 tab [id number] PRN SL CHEST PAIN; Start 10/08/16 at 19:00 Paroxetine HCl (Paxil) 40 mg DAILY PO Last administered on 10/12/16 08:16; Admin Dose 40 MG; Start 10/09/16 at 09:00 Tamsulosin HCl (Flomax) 0.4 mg HS PO Last administered on 10/11/16 20:23; Admin Dose 0.4 MG; Start 10/08/16 at 21:00 Ketorolac Tromethamine (Toradol) 30 mg Q6 IV Last administered on 10/12/16 06: 07; Admin Dose 30 MG; Start 10/11/16 at 14:00; Stop 10/14/16 at 13:59 Magnesium Hydroxide (Milk Of Mag) 30 ml DAILY PRN PO CONSTIPATION Last administered on 10/11/16 14:07; Admin Dose 30 ML; Start 10/11/16 at 14:00 Moy BUTTS Oct 12, 2016 08:32
[2016-10-12] MEDS ORDERED: OXYC-279 PO (11:52)
--- NOTE | 2016-10-12 19:51 | DS ---
Date/Time of Note Date/Time of Note DATE: 10/12/16 TIME: 19:50 Discharge Summary Admission/Discharge Info Admit Date/Time Oct 09, 2016 at 11:07 Discharge Date/Time Oct 12, 2016 at 13:50 Patient Condition: Stable Hx of Present Illness The patient is an 81-year-old gentleman with history of hypertension, obesity, fatty liver, chronic kidney disease was diagnosed with symptomatic gallstones. The patient was seen by Dr. Dunn as an outpatient and was admitted for elective cholecystectomy. The patient underwent laparoscopic in order to open cholecystectomy and also underwent open wedge liver biopsy. Patient still had significant postoperative pain and is being admitted for further evaluation and management. No reported chest pain or short of breath. No recent fever or chills. No recent acute cholecystis. No history of recent fever or chills. No history of orthopnea. The patient denied any leg pain. No reported focal weakness. No reported vomiting. The patient is being admitted for further management. Hospital Course -Symptomatic gallstone status post open cholecystectomy. Continue Dilaudid CYTOGENETICS LABORATORY MANAGER for pain and Zofran as needed for nausea. Advance diet per surgery. -Hypertension. Continue Norvasc. -Hyperlipidemia, continue TriCor -Hypothyroidism, continue Synthroid -Obesity. Home Meds Active Scripts Oxycodone HCl/Acetaminophen (Percocet 5-325 mg Tablet) 1 Each Tablet, 1 EACH PO Q4, #30 TAB Prov:JAMES NICOLAS 10/12/16 Reported Medications Temazepam* (Temazepam*) 15 Mg Capsule, 15 MG PO HS Y for INSOMNIA, CAP 10/08/16 Tamsulosin Hcl* (Tamsulosin Hcl*) 0.4 Mg Cap.er.24h, 0.4 MG PO HS, CAP 10/08/16 Amlodipine Besylate* (Amlodipine Besylate*) 10 Mg Tablet, 10 MG PO DAILY, #30 TAB 10/08/16 Nitroglycerin* (Nitrostat*) 0.4 Mg Tab.subl, 0.4 MG SL Q5MIN Y for CHEST PAIN, BOTTLE 10/08/16 Levothyroxine Sodium* (Levothyroxine Sodium*) 25 Mcg Tablet, 25 MCG PO BEFORE BREAKFAST, #30 TAB 10/08/16 Fenofibrate Nanocrystallized* (Fenofibrate*) 145 Mg Tablet, 145 MG PO DAILY, TAB 10/08/16 Furosemide* (Furosemide*) 40 Mg Tablet, 40 MG PO BID, TAB 10/08/16 Paroxetine Hcl* (Paroxetine*) 40 Mg Tablet, 40 MG PO DAILY, TAB 10/08/16 Discontinued Reported Medications Alirocumab (Praluent Pen) 75 Mg/1 Ml Pen.injctr, 75 MG SQ 08/14/16 Buprenorphine HCl (Bel[place]uca) 150 Mcg Film, 150 MCG BC BID, FILM 07/19/16 Mometasone Furoate* (Mometasone Furoate* Oint) 0.1% - 45 Gm Oint..gm., 1 APPLIC TOP DAILY, #1 TUB 07/19/16 Calcipotriene* (Calcipotriene*) 0.005%-60 Gm Oint...g., 1 APPLIC TOP BID, TUB 07/19/16 Clonidine Hcl* (Clonidine Hcl*) 0.1 Mg Tab, 0.1 MG PO TID Y for ELEVATED BLOOD PRESSURE, TAB 07/19/16 Linaclotide (LINZESS) 145 Mcg Capsule, 145 MCG PO DAILY, #30 CAP 07/19/16 Lisinopril* (Lisinopril*) 20 Mg Tablet, 20 MG PO DAILY, #30 TAB 07/19/16 Bimatoprost* (Lumigan*) 0.01%-2.5 Ml Opht Drops, 1 DROP BOTH EYES HS, EA 07/19/16 Nitroglycerin* (Nitrostat*) 0.4 Mg Tab.subl, 0.4 MG SL Q5MIN Y for CHEST PAIN, BOTTLE 07/19/16 Levothyroxine Sodium* (Levoxyl*) 25 Mcg Tablet, 25 MCG PO BEFORE BREAKFAST, #30 TAB 07/19/16 Lorazepam* (Lorazepam*) 0.5 Mg Tablet, 0.5 MG PO HS Y for SLEEP, TAB 07/19/16 Furosemide* (Lasix*) 40 Mg Tablet, 40 MG PO BID, TAB 07/19/16 Ranitidine Hcl* (Ranitidine Hcl*) 300 Mg Tablet, 300 MG PO HS, #30 TAB 07/19/16 Paroxetine Hcl* (Paroxetine*) 40 Mg Tablet, 40 MG PO DAILY, TAB 07/19/16 Icosapent Ethyl (VASCEPA) 1 Gm Capsule, 1 GM PO AC MEALS AND BEDTIME, CAP 07/19/16 Tamsulosin Hcl* (Flomax*) 0.4 Mg Cap.er.24h, 0.4 MG PO DAILY, CAP 07/19/16 Esomeprazole Mag Trihydrate (Nexium) 20 Mg Capsule.dr, 20 MG PO DAILY, #30 CAP 07/19/16 Mometasone Furoate* (Nasonex*) 50 Mcg/[place] - 17 Gm [place].pump, 1 SPRAY NASAL DAILY, #1 BOTTLE TO EACH NOSTRIL 07/19/16 Discontinued Scripts Hydrocodone/Acetaminophen ([place] 5-325 Tablet) 1 Each Tablet, 1 EACH PO Q6, #20 TAB Prov:MAGALY CARLSON DO 07/19/16 Follow-up Plan f/up with Dr Dunn in 1-2 weeks. Primary Care Provider Sheila Cain DO Pending Labs Laboratory Tests Test 10/12/16 05:52 White Blood Count 6.110^3/ul (4.8-10.8) Red Blood Count 3.9310^6/ul (4.70-6.10) Hemoglobin 12.0g/dl (14.0-18.0) Hematocrit 35.9% (42.0-52.0) Mean Corpuscular Volume 91.3fl (82.0-101.0) Mean Corpuscular Hemoglobin 30.5pg (29.0-33.0) Mean Corpuscular Hemoglobin Concent 33.4g/dl (32.0-37.0) Red Cell Distribution Width 12.2% (11.5-14.5) Platelet Count 25432^3/UL (140-415) Mean Platelet Volume 10.8fl (7.4-10.4) Neutrophils % 61.9% (39.0-77.0) Lymphocytes % 24.4% (15.0-51.0) Monocytes % 9.2% (0.0-11.0) Eosinophils % 3.5% (0.0-7.0) Basophils % 0.7% (0.0-2.0) Nucleated Red Blood Cells % 0.0/100WBC (0.0-0.0) Neutrophils # (Manual) 410^3/ul (1.7-7.5) Lymphocytes # 1.510^3/ul (0.8-2.9) Monocytes # 0.610^3/ul (0.3-0.9) Eosinophils # 0.210^3/ul (0.0-0.5) Basophils # 0.010^3/ul (0.0-0.1) Nucleated Red Blood Cells # 0.010^3/ul (0.0-0.0) JAMES NICOLAS Oct 12, 2016 19:51
== END 2016-10-12 13:50 | disposition home or self-care (01) | DRG 940 ==
LOC: SDS 07:00 → MS2 11:37 → SDS 11:37 → MS2 14:40 → OBSVTOIN 10-09 11:07
PROVIDERS: ADMIT Internal Medicine; ATTEND Surgery
PROC: 0FJ44ZZ Inspection of Gallbladder, Percutaneous Endoscopic Approach (ICD-10-PCS; 2016-10-08)
PROC: 0FB00ZX Excision of Liver, Open Approach, Diagnostic (ICD-10-PCS; 2016-10-08)
PROC: 0FT40ZZ Resection of Gallbladder, Open Approach (ICD-10-PCS; principal; 2016-10-08 09:30)
DX: G89.18 Other acute postprocedural pain (principal); K80.12 Calculus of gallbladder with acute and chronic cholecystitis without obstruction; K75.81 Nonalcoholic steatohepatitis (NASH); I12.9 Hypertensive chronic kidney disease with stage 1 through stage 4 chronic kidney disease, or unspecified chronic kidney disease; N18.9 Chronic kidney disease, unspecified; E03.9 Hypothyroidism, unspecified; E66.9 Obesity, unspecified; E78.5 Hyperlipidemia, unspecified; Z68.31 Body mass index [BMI] 31.0-31.9, adult; Z53.31 Laparoscopic surgical procedure converted to open procedure
CPT/HCPCS: 80048; 80053; 85025; 88304; 88307; 88313; 99217; G0378; J0690; J1100; J1170; J1885; J2175; J2250; J2370; J2405; J2795; J3010; J7030